=== PATIENT | female | born 2000 | race Caucasian/White ===

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

== ENCOUNTER → 2019-01-26 | Day surgery (SDC) | payer BC ==
[2019-01-23 10:36] LABS: Urine WBC None Seen /hpf (0 - 5)
[2019-01-23 10:45] LABS: Basophils # (auto) 0.1 uL; Eosinophils # (auto) 0.1 uL; Eosinophils % (auto) 1.8 % (0.0-7.0); Hematocrit 42.1 % (36.0-46.0); Hemoglobin 14.3 g/dL (12.2-16.2); Lymphocytes # (auto) 1.8 uL; Lymphocytes % (auto) 25.3 % (10.0-50.0); Mean Corpuscular Hemoglobin 31.8 pg (28.0-32.0); Mean Corpuscular Hgb Conc. 33.8 g/dL (32.0-36.0); Mean Corpuscular Volume 93.9 fL (80.0-100.0); Monocytes # (auto) 0.3 uL; Neutrophils # (auto) 4.8 uL; Neutrophils % (auto) 67.9 % (37.0-80.0); Platelet Count (auto) 312 10^3/uL (140-450); Red Blood Cells 4.48 10^6/uL (4.0-5.20); Red Cell Distribution Width 12.9 % (11.8-14.3); White Blood Cell 7.1 10^3/uL (4.4-10.8)
[2019-01-23 11:03] LABS: INR 0.97 (0.9-1.15); Partial Thromboplastin Time 28.9 sec (23.64-32.05)
[2019-01-23 11:08] LABS: Urine Bacteria FEW /hpf (None Seen); Urine Blood Negative /uL (Negative); Urine Specific Gravity 1.006 (1.001-1.035)
[2019-01-23 13:29] LABS: Albumin 4.3 g/dL (3.4-5.0); BUN/Creatinine Ratio 7.3; Bilirubin, Total 0.3 mg/dL (0.2-1.0); Calcium 9.3 mg/dL (8.5-10.1); Potassium 4.3 mmol/L (3.5-5.1); Total Protein 8.3 g/dL (6.4-8.2)
[~2019-01-26] VITALS: Ht 160 cm; Wt 54.4 kg
[~2019-01-26] MED LIST: BACL10TA PO; DexAMETHasone SOD PHOS 10MG/1ML VIAL INJ ONE; GLYCOPYRROLATE 0.2 MG/ML 1ML VIAL IV ONE; HYDROmorphone HCL 2 MG/ML VL IV PRN; KETOROLAC TROMETH 15 mg/ml 1ML VL IV ONE; KETOROLAC TROMETH 30 MG/ML 1ML VIAL IV ONE; LABETALOL HCL 5 MG/ML 4ML SYRINGE IV PRN; LACTATED RINGER'S 1,000 ML IV SCH; MEPERIDINE HCL (25 MG/ML) 1ML VIAL ONE; MIDAZOLAM HCL 1MG/1ML-2 ML VIAL IV PRN; MIDAZOLAM HCL 1MG/1ML-2 ML VIAL ONE; MORPHINE SULFATE 4 MG/ML SYR/VIAL IV ONE; NEOSTIGMINE 1 MG/ML INJ (10mg/10ML VIAL) IV ONE; ONDANSETRON HCL 4 MG/2 ML VIAL IV ONE; ONDANSETRON HCL 4 MG/2 ML VIAL IV PRN; PROPOFOL 10 MG/ML 20 ML IV ONE; ROCURONIUM 10MG/ML 10ML VIAL IV ONE; [UNRECOGNIZED DRUG - CODE] OR; ceFAZolin 1GM/50ML 50 ML IV ONE; ePHEDrine SULFATE 50 MG/ML AMP IV PRN; fentaNYL CITRATE 100 MCG/2 ML VL ONE
[2019-01-26 14:29] VITALS: BP 119/68
== END | disposition home or self-care (01) ==
LOC: SUR 09:49
PROVIDERS: ATTEND Specialist
DX: K66.0 Peritoneal adhesions (postprocedural) (postinfection) (principal); N94.6 Dysmenorrhea, unspecified; Z98.890 Other specified postprocedural states; Z88.8 Allergy status to other drugs, medicaments and biological substances; Z79.899 Other long term (current) drug therapy; Z88.5 Allergy status to narcotic agent
CPT/HCPCS: 36415; 58660; 80053; 81001; 84702; 85025; 85610; 85730; 86850; 86900; 86901; J0690; J1100; J1885; J2175; J2250; J2704; J3010

== ENCOUNTER 2019-03-20 21:01 | Emergency (ER) | payer SELFPAY ==
[~2019-03-20] VITALS: Ht 160 cm; Wt 54.4 kg
[~2019-03-20 21:01] MED LIST changes: -DexAMETHasone SOD PHOS 10MG/1ML VIAL INJ ONE; -GLYCOPYRROLATE 0.2 MG/ML 1ML VIAL IV ONE; -HYDROmorphone HCL 2 MG/ML VL IV PRN; -KETOROLAC TROMETH 15 mg/ml 1ML VL IV ONE; -KETOROLAC TROMETH 30 MG/ML 1ML VIAL IV ONE; -LABETALOL HCL 5 MG/ML 4ML SYRINGE IV PRN; -LACTATED RINGER'S 1,000 ML IV SCH; -MEPERIDINE HCL (25 MG/ML) 1ML VIAL ONE; -MIDAZOLAM HCL 1MG/1ML-2 ML VIAL IV PRN; -MIDAZOLAM HCL 1MG/1ML-2 ML VIAL ONE; -MORPHINE SULFATE 4 MG/ML SYR/VIAL IV ONE; -NEOSTIGMINE 1 MG/ML INJ (10mg/10ML VIAL) IV ONE; -ONDANSETRON HCL 4 MG/2 ML VIAL IV ONE; -ONDANSETRON HCL 4 MG/2 ML VIAL IV PRN; -PROPOFOL 10 MG/ML 20 ML IV ONE; -ROCURONIUM 10MG/ML 10ML VIAL IV ONE; -ceFAZolin 1GM/50ML 50 ML IV ONE; -ePHEDrine SULFATE 50 MG/ML AMP IV PRN; -fentaNYL CITRATE 100 MCG/2 ML VL ONE
[2019-03-21 00:22] VITALS: BP 95/51
[2019-03-21] MEDS ORDERED: METOCLOPRAMIDE HCL 5MG/ml INJ 2ml VIAL IV ONE (00:30)
[2019-03-21] MEDS ORDERED: KETOROLAC TROMETH 30 MG/ML 1ML VIAL IV ONE (00:30)
[2019-03-21] MEDS ORDERED: diphenhdrAMINE HCL 50 MG/1 ML VL IV ONE (00:30)
[2019-03-21] MEDS ORDERED: SODIUM CHLORIDE 0.9% 1,000 ML IV ONE (00:30)
[2019-03-21] MEDS ORDERED: diphenhdrAMINE HCL 50 MG/1 ML VL ONE (00:59)
== END 2019-03-21 01:55 | disposition home or self-care (01) ==
LOC: ER 21:02
DX: G43.909 Migraine, unspecified, not intractable, without status migrainosus (principal); R42 Dizziness and giddiness; Z90.89 Acquired absence of other organs
CPT/HCPCS: 96361; 96374; 96375; 99283; J1200; J1885; J2765; J7030

== ENCOUNTER 2019-07-23 08:05 | Emergency (ER) | payer BC ==
[~2019-07-23] VITALS: Ht 160 cm; Wt 55.3 kg
[2019-07-23 08:20] VITALS: BP 115/67
[2019-07-23] MEDS ORDERED: KETOROLAC TROMETH 60MG/2ML VIAL IM ONE (09:15)
[2019-07-23] MEDS ORDERED: KETOROLAC TROMETH 30 MG/ML 1ML VIAL IV ONE (09:30)
== END 2019-07-23 09:40 | disposition home or self-care (01) ==
LOC: ER 08:05
DX: S86.912A Strain of unspecified muscle(s) and tendon(s) at lower leg level, left leg, initial encounter (principal); R68.84 Jaw pain; Z90.89 Acquired absence of other organs; Z88.6 Allergy status to analgesic agent; Z88.8 Allergy status to other drugs, medicaments and biological substances; V27.4XXA Motorcycle driver injured in collision with fixed or stationary object in traffic accident, initial encounter; Y93.89 Activity, other specified; Y99.8 Other external cause status; Y92.410 Unspecified street and highway as the place of occurrence of the external cause
CPT/HCPCS: 70450; 73590; 73630; 73700; 74176; 96374; 99284; J1885

== ENCOUNTER 2019-09-05 16:18 | Emergency (ER) | payer BC ==
[~2019-09-05] VITALS: Ht 160 cm; Wt 57.2 kg
[2019-09-05 16:23] VITALS: BP 129/74
== END 2019-09-05 18:12 | disposition home or self-care (01) ==
LOC: ER 16:18
DX: S93.601A Unspecified sprain of right foot, initial encounter (principal); Z90.89 Acquired absence of other organs; Z88.8 Allergy status to other drugs, medicaments and biological substances; X50.1XXA Overexertion from prolonged static or awkward postures, initial encounter; Y93.89 Activity, other specified; Y99.8 Other external cause status; Y92.89 Other specified places as the place of occurrence of the external cause
CPT/HCPCS: 73630

== ENCOUNTER 2019-11-03 11:11 | Emergency (ER) | payer BC ==
[~2019-11-03] VITALS: Ht 160 cm; Wt 54.4 kg
[2019-11-03 11:25] VITALS: BP 154/76
== END 2019-11-03 13:25 | disposition home or self-care (01) ==
LOC: ER 11:11
DX: S40.011D Contusion of right shoulder, subsequent encounter (principal); Z88.6 Allergy status to analgesic agent; Z79.899 Other long term (current) drug therapy; V49.9XXA Car occupant (driver) (passenger) injured in unspecified traffic accident, initial encounter; Y93.89 Activity, other specified; Y92.89 Other specified places as the place of occurrence of the external cause; Y99.8 Other external cause status
CPT/HCPCS: 71101; 73000

== ENCOUNTER → 2020-01-14 | Outpatient (CLI) | payer BC, OTHER | END | disposition home or self-care (01) | LOC: LAB 09:34 | PROVIDERS: ATTEND Specialist | DX: Z11.3 Encounter for screening for infections with a predominantly sexual mode of transmission (principal) ==

== ENCOUNTER 2020-02-06 16:42 | Emergency (ER) | payer BC, OTHER ==
[~2020-02-06] VITALS: Ht 160 cm; Wt 54.4 kg
[2020-02-06 17:10] VITALS: BP 100/67
[2020-02-06] MEDS ORDERED: ONDANSETRON HCL 4 MG/2 ML VIAL IV ONE (17:30)
[2020-02-06 18:09] LABS: Basophils # (auto) 0 10 ^3/uL (0-0.2); Basophils % (auto) 0.3 % (0.0-2.0); Eosinophils # (auto) 0.8 10 ^3/uL (0-0.8); Eosinophils % (auto) 6.4 % (0.0-7.0); Hematocrit 41.8 % (36.0-46.0); Hemoglobin 14.2 g/dL (12.2-16.2); Lymphocytes # (auto) 1.1 10 ^3/uL (0.4-5.4); Lymphocytes % (auto) 9.1 % (10.0-50.0); Mean Corpuscular Hemoglobin 32.1 pg (28.0-32.0); Mean Corpuscular Volume 94.3 fL (80.0-100.0); Monocytes # (auto) 0.3 10 ^3/uL (0-1.3); Monocytes % (auto) 2.6 % (0.0-12.0); Neutrophils # (auto) 10.2 10 ^3/uL (1.6-8.6); Neutrophils % (auto) 81.6 % (37.0-80.0); Nucleated Red Blood Cells % 0.1 %; Platelet Count (auto) 244 10^3/uL (140-450); Red Blood Cells 4.44 10^6/uL (4.0-5.20); Red Cell Distribution Width 13.5 % (11.8-14.3); White Blood Cell 12.5 10^3/uL (4.4-10.8)
[2020-02-06] MEDS ORDERED: SODIUM CHLORIDE 0.9% 1,000 ML IV ONE (18:15)
[2020-02-06 18:24] LABS: Potassium 3.6 mmol/L (3.5-5.1)
[2020-02-06 19:26] LABS: BUN/Creatinine Ratio 10.3
== END 2020-02-06 18:47 | disposition home or self-care (01) ==
LOC: ER 16:42
DX: U07.1 COVID-19 (principal); B34.9 Viral infection, unspecified
CPT/HCPCS: 36415; 71045; 80048; 85025; 96361; 96374; 99284; J2405; U0003

== ENCOUNTER 2020-03-02 09:44 | Emergency (ER) | payer BC ==
[~2020-03-02] VITALS: Ht 160 cm; Wt 54.4 kg
[2020-03-02 10:57] VITALS: BP 106/65
== END 2020-03-02 11:07 | disposition home or self-care (01) ==
LOC: ER 09:44
DX: S00.33XA Contusion of nose, initial encounter (principal); R09.81 Nasal congestion; Z79.899 Other long term (current) drug therapy; Z88.6 Allergy status to analgesic agent; X58.XXXA Exposure to other specified factors, initial encounter; Y93.89 Activity, other specified; Y92.89 Other specified places as the place of occurrence of the external cause; Y99.8 Other external cause status
CPT/HCPCS: 70160

== ENCOUNTER → 2020-04-25 | Outpatient (CLI) | payer OTHER | END | disposition home or self-care (01) | LOC: LAB 10:44 | PROVIDERS: ATTEND Nurse Practitioner Family | DX: Z20.828 Contact with and (suspected) exposure to other viral communicable diseases (principal) | CPT/HCPCS: C9803; U0003 ==

== ENCOUNTER → 2020-06-20 | Outpatient (CLI) | payer BC | END | disposition home or self-care (01) | LOC: LAB 10:02 | PROVIDERS: ATTEND Internal Medicine | DX: R11.0 Nausea (principal) | CPT/HCPCS: 36415; 84702 ==

== ENCOUNTER 2020-08-23 13:06 | Emergency (ER) | payer BC ==
[~2020-08-23] VITALS: Ht 157.5 cm; Wt 58.1 kg
[2020-08-23 13:08] VITALS: BP 122/78
[2020-08-23] MEDS ORDERED: ONDANSETRON HCL 4 MG/2 ML VIAL IV ONE (13:45)
[2020-08-23] MEDS ORDERED: KETOROLAC TROMETH 30 MG/ML 1ML VIAL IV ONE (13:45)
[2020-08-23] MEDS ORDERED: SODIUM CHLORIDE 0.9% 1,000 ML IV ONE (13:45)
[2020-08-23 14:19] LABS: Basophils # (auto) 0 10 ^3/uL (0-0.2); Basophils % (auto) 0.8 % (0.0-2.0); Eosinophils # (auto) 0.4 10 ^3/uL (0-0.8); Eosinophils % (auto) 7.4 % (0.0-7.0); Hematocrit 39.7 % (36.0-46.0); Hemoglobin 13.4 g/dL (12.2-16.2); Lymphocytes # (auto) 1.1 10 ^3/uL (0.4-5.4); Lymphocytes % (auto) 21.2 % (10.0-50.0); Mean Corpuscular Hemoglobin 32.1 pg (28.0-32.0); Mean Corpuscular Hgb Conc. 33.9 g/dL (32.0-36.0); Mean Corpuscular Volume 94.9 fL (80.0-100.0); Monocytes # (auto) 0.4 10 ^3/uL (0-1.3); Monocytes % (auto) 6.8 % (0.0-12.0); Neutrophils # (auto) 3.4 10 ^3/uL (1.6-8.6); Neutrophils % (auto) 63.8 % (37.0-80.0); Platelet Count (auto) 270 10^3/uL (140-450); Red Blood Cells 4.19 10^6/uL (4.0-5.20); Red Cell Distribution Width 13.2 % (11.8-14.3); White Blood Cell 5.4 10^3/uL (4.4-10.8)
[2020-08-23 14:23] LABS: Urine Bacteria MANY /hpf (None Seen); Urine Blood Negative /uL (Negative); Urine Mucus FEW (None Seen); Urine Specific Gravity 1.036 (1.001-1.035); Urine WBC 4 /hpf (0 - 5)
[2020-08-23 14:34] LABS: BUN/Creatinine Ratio 7.7; Potassium 3.6 mmol/L (3.5-5.1)
[2020-08-23] MEDS ORDERED: cefTRIAXone 1GM/50ML D5W 50 ML IV ONE (15:00)
== END 2020-08-23 15:33 | disposition home or self-care (01) ==
LOC: ER 13:06
DX: N39.0 Urinary tract infection, site not specified (principal); Z88.8 Allergy status to other drugs, medicaments and biological substances
CPT/HCPCS: 36415; 80048; 81001; 81025; 85025; 96361; 96365; 96375; 99284; J0696; J1885; J2405

== ENCOUNTER 2020-10-05 21:33 | Emergency (ER) | payer BC ==
[~2020-10-05] VITALS: Ht 157.5 cm; Wt 57.2 kg
[2020-10-05 23:15] VITALS: BP 99/51
== END 2020-10-05 23:21 | disposition home or self-care (01) ==
LOC: ER 21:34
DX: R07.89 Other chest pain (principal); Z88.8 Allergy status to other drugs, medicaments and biological substances
CPT/HCPCS: 71046

== ENCOUNTER → 2020-10-10 | Outpatient (CLI) | payer BC ==
[2020-10-10 10:42] LABS: Basophils # (auto) 0.1 10 ^3/uL (0-0.2); Basophils % (auto) 1.1 % (0.0-2.0); Eosinophils # (auto) 0.2 10 ^3/uL (0-0.8); Eosinophils % (auto) 4.8 % (0.0-7.0); Hematocrit 37.9 % (36.0-46.0); Hemoglobin 13.2 g/dL (12.2-16.2); Lymphocytes # (auto) 1.4 10 ^3/uL (0.4-5.4); Lymphocytes % (auto) 26.6 % (10.0-50.0); Mean Corpuscular Hemoglobin 32.1 pg (28.0-32.0); Mean Corpuscular Hgb Conc. 34.8 g/dL (32.0-36.0); Mean Corpuscular Volume 92.2 fL (80.0-100.0); Monocytes # (auto) 0.3 10 ^3/uL (0-1.3); Neutrophils # (auto) 3.2 10 ^3/uL (1.6-8.6); Neutrophils % (auto) 62.5 % (37.0-80.0); Nucleated Red Blood Cells % 0.1 %; Platelet Count (auto) 260 10^3/uL (140-450); Red Blood Cells 4.11 10^6/uL (4.0-5.20); White Blood Cell 5.1 10^3/uL (4.4-10.8)
[2020-10-10 10:53] LABS: Calcium 9.2 mg/dL (8.5-10.1)
[2020-10-10 10:56] LABS: Bilirubin, Total 0.4 mg/dL (0.2-1.0); Total Protein 6.8 g/dL (6.4-8.2)
[2020-10-10 11:01] LABS: Urine Bacteria FEW /hpf (None Seen); Urine Blood Negative /uL (Negative); Urine Mucus FEW (None Seen); Urine Specific Gravity 1.029 (1.001-1.035); Urine WBC 3 /hpf (0 - 5)
[2020-10-11 08:06] LABS: RPR Non Reactive (Non Reactive)
== END | disposition home or self-care (01) ==
LOC: LAB 09:17
PROVIDERS: ATTEND Internal Medicine
DX: Z00.00 Encounter for general adult medical examination without abnormal findings (principal); F31.9 Bipolar disorder, unspecified
CPT/HCPCS: 36415; 80053; 81001; 83036; 84443; 85025; 85379; 86592; 87086

== ENCOUNTER 2021-02-01 00:11 | Emergency (ER) | payer BC ==
[~2021-02-01] VITALS: Ht 157.5 cm; Wt 56.2 kg
[2021-02-01 02:05] LABS: Basophils # (auto) 0.1 10 ^3/uL (0-0.2); Basophils % (auto) 1.3 % (0.0-2.0); Eosinophils # (auto) 0.3 10 ^3/uL (0-0.8); Eosinophils % (auto) 4.5 % (0.0-7.0); Hematocrit 39.3 % (36.0-46.0); Hemoglobin 13.7 g/dL (12.2-16.2); Lymphocytes # (auto) 2.4 10 ^3/uL (0.4-5.4); Lymphocytes % (auto) 34.8 % (10.0-50.0); Mean Corpuscular Hemoglobin 31.7 pg (28.0-32.0); Mean Corpuscular Hgb Conc. 34.9 g/dL (32.0-36.0); Monocytes # (auto) 0.3 10 ^3/uL (0-1.3); Monocytes % (auto) 4.3 % (0.0-12.0); Neutrophils # (auto) 3.8 10 ^3/uL (1.6-8.6); Neutrophils % (auto) 55.1 % (37.0-80.0); Nucleated Red Blood Cells % 0.1 %; Red Blood Cells 4.31 10^6/uL (4.0-5.20); Red Cell Distribution Width 12.8 % (11.8-14.3); White Blood Cell 6.8 10^3/uL (4.4-10.8)
[2021-02-01 02:37] LABS: Albumin 4.2 g/dL (3.4-5.0); BUN/Creatinine Ratio 13.6; Calcium 8.4 mg/dL (8.5-10.1); Potassium 3.9 mmol/L (3.5-5.1)
[2021-02-01 02:40] LABS: Bilirubin, Total 0.2 mg/dL (0.2-1.0); Total Protein 7.2 g/dL (6.4-8.2)
[2021-02-01] MEDS ORDERED: ONDANSETRON HCL 4 MG/2 ML VIAL IV ONE (04:45)
[2021-02-01] MEDS ORDERED: SODIUM CHLORIDE 0.9% 1,000 ML IV ONE (04:45)
[2021-02-01] MEDS ORDERED: MORPHINE SULF INJ 2 MG/ML SYRINGE 1ML IV ONE (04:45)
[2021-02-01 04:47] LABS: Urine Bacteria FEW /hpf (None Seen); Urine Blood Negative /uL (Negative); Urine Specific Gravity 1.021 (1.001-1.035); Urine WBC 1 /hpf (0 - 5)
[2021-02-01] MEDS ORDERED: ACETAMINOPHEN 325 MG TAB PO ONE (05:00)
[2021-02-01] MEDS ORDERED: cefTRIAXone 1GM/50ML D5W 50 ML IV ONE (05:00)
[2021-02-01 06:11] VITALS: BP 106/69
== END 2021-02-01 06:18 | disposition home or self-care (01) ==
LOC: ER 00:13
DX: R10.2 Pelvic and perineal pain (principal); R11.0 Nausea; Z88.6 Allergy status to analgesic agent; Z88.8 Allergy status to other drugs, medicaments and biological substances; Z79.899 Other long term (current) drug therapy; Z87.440 Personal history of urinary (tract) infections
CPT/HCPCS: 36415; 76830; 76856; 80053; 81001; 84702; 85025; 87086; 96365; 96375; 99284; J0696; J2270; J2405

== ENCOUNTER → 2021-05-26 | Outpatient (CLI) | payer BC ==
[2021-05-26 10:55] LABS: Basophils # (auto) 0 10 ^3/uL (0-0.2); Basophils % (auto) 0.7 % (0.0-2.0); Eosinophils # (auto) 0.2 10 ^3/uL (0-0.8); Hematocrit 40.8 % (36.0-46.0); Hemoglobin 13.9 g/dL (12.2-16.2); Lymphocytes # (auto) 1.5 10 ^3/uL (0.4-5.4); Lymphocytes % (auto) 25.1 % (10.0-50.0); Mean Corpuscular Hemoglobin 31.4 pg (28.0-32.0); Mean Corpuscular Hgb Conc. 34.1 g/dL (32.0-36.0); Mean Corpuscular Volume 92.2 fL (80.0-100.0); Monocytes # (auto) 0.4 10 ^3/uL (0-1.3); Monocytes % (auto) 6.1 % (0.0-12.0); Neutrophils # (auto) 3.8 10 ^3/uL (1.6-8.6); Neutrophils % (auto) 65.1 % (37.0-80.0); Nucleated Red Blood Cells % 0.1 %; Red Blood Cells 4.43 10^6/uL (4.0-5.20); Red Cell Distribution Width 12.7 % (11.8-14.3); White Blood Cell 5.8 10^3/uL (4.4-10.8)
[2021-05-26 11:33] LABS: Urine Bacteria MOD /hpf (None Seen); Urine Blood Negative /uL (Negative); Urine Hyaline Cast FEW /lpf (0 - 2); Urine Specific Gravity 1.021 (1.001-1.035); Urine WBC 5 /hpf (0 - 5)
== END | disposition home or self-care (01) ==
LOC: LAB 10:40
PROVIDERS: ATTEND Internal Medicine
DX: N39.0 Urinary tract infection, site not specified (principal); F31.9 Bipolar disorder, unspecified
CPT/HCPCS: 36415; 81001; 84443; 85025; 85652

== ENCOUNTER 2021-06-24 14:24 | Emergency (ER) | payer BC ==
[~2021-06-24] VITALS: Ht 160 cm; Wt 59.0 kg
[2021-06-24 15:41] VITALS: BP 115/78
[2021-06-24] MEDS ORDERED: KETOROLAC TROMETH 60MG/2ML VIAL IM ONE (16:00)
[2021-06-24] MEDS ORDERED: methylPREDNISolone SOD SUCC 125 MG/2 ML VL IM ONE (16:00)
== END 2021-06-24 16:27 | disposition home or self-care (01) ==
LOC: ER 14:24
DX: S39.012A Strain of muscle, fascia and tendon of lower back, initial encounter (principal); X50.1XXA Overexertion from prolonged static or awkward postures, initial encounter; Y93.89 Activity, other specified; Y92.89 Other specified places as the place of occurrence of the external cause; Y99.8 Other external cause status
CPT/HCPCS: 96372; 99284; J1885; J2930

== ENCOUNTER 2021-07-08 10:52 | Emergency (ER) | payer BC ==
[~2021-07-08] VITALS: Ht 160 cm; Wt 59.0 kg
[2021-07-08 12:52] VITALS: BP 124/68
[2021-07-08] MEDS ORDERED: BENZ100C97 PO (14:17)
[2021-07-08] MEDS ORDERED: PRED20TA2 PO (14:17)
[2021-07-08] MEDS ORDERED: AMOX-277 PO (14:17)
== END 2021-07-08 14:21 | disposition home or self-care (01) ==
LOC: ER 10:52 → EEVIPCON 10:52 → ER 14:21
DX: J06.9 Acute upper respiratory infection, unspecified (principal); F12.10 Cannabis abuse, uncomplicated; Z90.89 Acquired absence of other organs; Z20.822 Contact with and (suspected) exposure to COVID-19
CPT/HCPCS: 36415; 71046; 87426

== ENCOUNTER → 2021-11-09 | Outpatient (CLI) | payer BC ==
[~2021-11-09] MED LIST changes: +AMOX-277 PO; +BENZ100C97 PO; +PRED20TA2 PO
[2021-11-09 15:00] LABS: Basophils # (auto) 0.2 10 ^3/uL (0-0.2); Basophils % (auto) 1.4 % (0.0-2.0); Eosinophils # (auto) 0.1 10 ^3/uL (0-0.8); Eosinophils % (auto) 0.9 % (0.0-7.0); Hematocrit 38.7 % (36.0-46.0); Hemoglobin 13.2 g/dL (12.2-16.2); Lymphocytes # (auto) 1.5 10 ^3/uL (0.4-5.4); Lymphocytes % (auto) 13.1 % (10.0-50.0); Mean Corpuscular Hgb Conc. 34.2 g/dL (32.0-36.0); Mean Corpuscular Volume 90.5 fL (80.0-100.0); Monocytes # (auto) 0.3 10 ^3/uL (0-1.3); Neutrophils # (auto) 9.2 10 ^3/uL (1.6-8.6); Neutrophils % (auto) 81.6 % (37.0-80.0); Red Blood Cells 4.27 10^6/uL (4.0-5.20); Red Cell Distribution Width 13.2 % (11.8-14.3); White Blood Cell 11.2 10^3/uL (4.4-10.8)
[2021-11-09 15:34] LABS: Amphetamine Screen, Urine NEGATIVE (NEGATIVE); Barbiturate Scree,Urine NEGATIVE (NEGATIVE); Benzodiazephine Screen, Urine NEGATIVE (NEGATIVE); Cannabinoid Screen, Urine NEGATIVE (NEGATIVE); Cocaine Screen, Urine NEGATIVE (NEGATIVE); Opiate Scree,Urine NEGATIVE (NEGATIVE); Phencyclidine Screen, Urine NEGATIVE (NEGATIVE)
[2021-11-10 08:06] LABS: RPR Non Reactive (Non Reactive)
== END | disposition home or self-care (01) ==
LOC: LAB 14:31
PROVIDERS: ATTEND Obstetrics & Gynecology Obstetrics
DX: Z34.00 Encounter for supervision of normal first pregnancy, unspecified trimester (principal); Z31.430 Encounter of female for testing for genetic disease carrier status for procreative management; Z11.3 Encounter for screening for infections with a predominantly sexual mode of transmission; N39.0 Urinary tract infection, site not specified
CPT/HCPCS: 36415; 80307; 83036; 84112; 84144; 84702; 85025; 86592; 86703; 86762; 86850; 86900; 86901; 87086; 87340

== ENCOUNTER 2021-12-10 09:02 | Emergency (ER) | payer BC ==
[~2021-12-10] VITALS: Ht 157.5 cm; Wt 61.7 kg
[2021-12-10 09:29] LABS: Urine WBC None Seen /hpf (0 - 5)
[2021-12-10 09:43] LABS: Urine Bacteria NONE SEEN /hpf (None Seen); Urine Blood Negative /uL (Negative)
[2021-12-10 10:04] LABS: Basophils # (auto) 0.1 10 ^3/uL (0-0.2); Basophils % (auto) 1.7 % (0.0-2.0); Eosinophils # (auto) 0.1 10 ^3/uL (0-0.8); Eosinophils % (auto) 0.9 % (0.0-7.0); Hematocrit 35.8 % (36.0-46.0); Hemoglobin 12.8 g/dL (12.2-16.2); Lymphocytes # (auto) 0.9 10 ^3/uL (0.4-5.4); Lymphocytes % (auto) 11.9 % (10.0-50.0); Mean Corpuscular Hemoglobin 32.6 pg (28.0-32.0); Mean Corpuscular Hgb Conc. 35.8 g/dL (32.0-36.0); Mean Corpuscular Volume 90.9 fL (80.0-100.0); Monocytes # (auto) 0.3 10 ^3/uL (0-1.3); Neutrophils # (auto) 6.4 10 ^3/uL (1.6-8.6); Neutrophils % (auto) 81.5 % (37.0-80.0); Nucleated Red Blood Cells % 0.1 %; Red Blood Cells 3.94 10^6/uL (4.0-5.20); Red Cell Distribution Width 13.2 % (11.8-14.3); White Blood Cell 7.9 10^3/uL (4.4-10.8)
[2021-12-10 10:12] LABS: Albumin 3.2 g/dL (3.4-5.0); Calcium 8.6 mg/dL (8.5-10.1); Potassium 3.9 mmol/L (3.5-5.1)
[2021-12-10 10:16] LABS: BUN/Creatinine Ratio 9.3; Bilirubin, Total 0.3 mg/dL (0.2-1.0); Total Protein 6.7 g/dL (6.4-8.2)
[2021-12-10 11:41] VITALS: BP 94/55
== END 2021-12-10 11:47 | disposition home or self-care (01) ==
LOC: ER 09:02
DX: O26.892 Other specified pregnancy related conditions, second trimester (principal); M54.9 Dorsalgia, unspecified; O25.12 Malnutrition in pregnancy, second trimester; Z3A.15 15 weeks gestation of pregnancy; Z90.89 Acquired absence of other organs; Z88.6 Allergy status to analgesic agent; Z88.8 Allergy status to other drugs, medicaments and biological substances
CPT/HCPCS: 36415; 76805; 80053; 81001; 83690; 84702; 85025

== ENCOUNTER 2021-12-16 07:51 | Emergency (ER) | payer BC ==
[~2021-12-16] VITALS: Ht 157.5 cm; Wt 62.6 kg
[2021-12-16 07:57] VITALS: BP 108/75
[2021-12-16] MEDS ORDERED: ACETAMINOPHEN 500 MG TAB PO ONE (08:45)
[2021-12-16] MEDS ORDERED: METOCLOPRAMIDE HCL 10 MG TAB PO ONE (08:45)
[2021-12-16] MEDS ORDERED: diphenhdrAMINE HCL 50 MG/1 ML VL IM ONE (09:00)
[2021-12-16 09:03] LABS: Urine Bacteria MOD /hpf (None Seen); Urine Blood Negative /uL (Negative); Urine Specific Gravity 1.016 (1.001-1.035); Urine WBC 2 /hpf (0 - 5)
[2021-12-16] MEDS ORDERED: ACET-1080 PO (09:13)
[2021-12-16] MEDS ORDERED: ACE650RS PR (09:13)
== END 2021-12-16 09:17 | disposition home or self-care (01) ==
LOC: ER 07:51
DX: O29.42 Spinal and epidural anesthesia induced headache during pregnancy, second trimester (principal); G43.909 Migraine, unspecified, not intractable, without status migrainosus; O99.322 Drug use complicating pregnancy, second trimester; F12.90 Cannabis use, unspecified, uncomplicated; Z90.89 Acquired absence of other organs; Z3A.16 16 weeks gestation of pregnancy
CPT/HCPCS: 81001; 81025; 96372; 99283; J1200; J8597

== ENCOUNTER 2022-01-21 08:15 | Observation (INO) | payer BC ==
[~2022-01-21 08:15] MED LIST changes: +ACET-1080 PO
== END 2022-01-21 10:12 | disposition home or self-care (01) ==
LOC: LDRP 08:15 → UNDOADMOB 08:15 → LDRP 08:30
PROVIDERS: ADMIT Obstetrics & Gynecology; ATTEND Obstetrics & Gynecology
DX: O26.892 Other specified pregnancy related conditions, second trimester (principal); R10.9 Unspecified abdominal pain; O62.9 Abnormality of forces of labor, unspecified; Z3A.20 20 weeks gestation of pregnancy
CPT/HCPCS: 59025; 81002; G0378

== ENCOUNTER → 2022-02-12 | Outpatient (CLI) | payer BC ==
[~2022-02-12] MED LIST changes: -BACL10TA PO; -[UNRECOGNIZED DRUG - CODE] OR
[2022-02-12 08:09] LABS: Basophils # (auto) 0 10 ^3/uL (0-0.2); Basophils % (auto) 0.4 % (0.0-2.0); Eosinophils # (auto) 0.1 10 ^3/uL (0-0.8); Eosinophils % (auto) 1.4 % (0.0-7.0); Hematocrit 36.9 % (36.0-46.0); Hemoglobin 12.4 g/dL (12.2-16.2); Lymphocytes # (auto) 1.3 10 ^3/uL (0.4-5.4); Lymphocytes % (auto) 12.3 % (10.0-50.0); Mean Corpuscular Hemoglobin 31.3 pg (28.0-32.0); Mean Corpuscular Hgb Conc. 33.5 g/dL (32.0-36.0); Mean Corpuscular Volume 93.6 fL (80.0-100.0); Monocytes # (auto) 0.5 10 ^3/uL (0-1.3); Monocytes % (auto) 4.7 % (0.0-12.0); Neutrophils # (auto) 8.3 10 ^3/uL (1.6-8.6); Neutrophils % (auto) 81.2 % (37.0-80.0); Red Blood Cells 3.94 10^6/uL (4.0-5.20); Red Cell Distribution Width 13.4 % (11.8-14.3); White Blood Cell 10.2 10^3/uL (4.4-10.8)
== END | disposition home or self-care (01) ==
LOC: LAB 07:58
PROVIDERS: ATTEND Obstetrics & Gynecology Obstetrics
DX: Z34.80 Encounter for supervision of other normal pregnancy, unspecified trimester (principal)
CPT/HCPCS: 36415; 82951; 85025

== ENCOUNTER 2022-02-25 09:34 | Observation (INO) | payer BC ==
[2022-02-25] MEDS ORDERED: LACTATED RINGER'S 1,000 ML IV ONE (10:30)
[2022-02-25 12:41] LABS: Urine Bacteria FEW /hpf (None Seen); Urine Blood Negative /uL (Negative); Urine Mucus FEW (None Seen); Urine WBC 2 /hpf (0 - 5)
== END 2022-02-25 11:35 | disposition home or self-care (01) ==
LOC: UNDOADMOB 09:34 → LDRP 09:34
PROVIDERS: ADMIT Obstetrics & Gynecology; ATTEND Obstetrics & Gynecology
DX: O99.891 Other specified diseases and conditions complicating pregnancy (principal); M54.50 Low back pain, unspecified; O26.892 Other specified pregnancy related conditions, second trimester; R10.9 Unspecified abdominal pain; Z3A.25 25 weeks gestation of pregnancy
CPT/HCPCS: 59025; 81001; 81002; 87086; 94760; 96360; G0378

== ENCOUNTER 2022-04-06 21:36 | Observation (INO) | payer BC ==
[~2022-04-06] VITALS: Ht 157.5 cm; Wt 69.9 kg
[2022-04-06] MEDS ORDERED: LACTATED RINGER'S 1,000 ML IV ONE ×2 (22:30→23:15)
[2022-04-06] MEDS ORDERED: ONDANSETRON HCL 4 MG/2 ML VIAL IV ONE (22:30)
[2022-04-06] MEDS ORDERED: ACETAMINOPHEN 325 MG TAB PO ONE (22:30)
[2022-04-06] MEDS ORDERED: CALC500C3 PO (23:09)
[2022-04-06] MEDS ORDERED: PREN-96 PO (23:09)
[2022-04-06] MEDS ORDERED: [UNRECOGNIZED DRUG - CODE] IJ (23:11)
[2022-04-06] MEDS ORDERED: TERBUTALINE SULFATE 1 MG/ML 1ML VIAL SC ONE (23:23)
[2022-04-06] MEDS: TERBUTALINE SULFATE 1 MG/ML 1ML VIAL SC SCH ×2 (23:24→23:44)
[2022-04-07] MEDS: TERBUTALINE SULFATE 1 MG/ML 1ML VIAL SC SCH (00:24)
[2022-04-07] MEDS ORDERED: NIFEdipine 10 MG CAP PO ONE (01:15)
[2022-04-07] MEDS ORDERED: PREN-96 OR (19:00)
[2022-04-25] MEDS ORDERED: NIF10C PO ×2 (21:48)
== END 2022-04-07 02:09 | disposition home or self-care (01) ==
LOC: LDRP 21:36
PROVIDERS: ADMIT Obstetrics & Gynecology; ATTEND Obstetrics & Gynecology
DX: O60.03 Preterm labor without delivery, third trimester (principal); Z20.822 Contact with and (suspected) exposure to COVID-19; O21.2 Late vomiting of pregnancy; O26.893 Other specified pregnancy related conditions, third trimester; R19.7 Diarrhea, unspecified; Z3A.31 31 weeks gestation of pregnancy
CPT/HCPCS: 36415; 59025; 76815; 81002; 87426; 94760; 96361; 96372; 96374; G0378; J2405; J3105; 96360

== ENCOUNTER 2022-04-07 14:35 | Observation (INO) | payer BC ==
[~2022-04-07] VITALS: Ht 162.6 cm; Wt 72.6 kg
[~2022-04-07 14:35] MED LIST changes: +CALC500C3 PO; +PREN-96 PO; +[UNRECOGNIZED DRUG - CODE] IJ
[2022-04-07] MEDS ORDERED: NIFEdipine 10 MG CAP PO ONE (15:45)
[2022-04-07] MEDS ORDERED: ceFAZolin 2 GM in D5W 5% 100 ML IV ONE (16:45)
[2022-04-07] MEDS ORDERED: LACTATED RINGER'S 1,000 ML IV ONE (16:45)
[2022-04-07] MEDS ORDERED: BUTORPHANOL TARTRATE 2 MG/1 ML VIAL IV ONE (16:45)
[2022-04-07 18:30] LABS: Urine Bacteria MOD /hpf (None Seen); Urine Blood Negative /uL (Negative); Urine Specific Gravity 1.005 (1.001-1.035); Urine WBC 1 /hpf (0 - 5)
[2022-04-07] MEDS ORDERED: PREN-96 OR (19:00)
== END 2022-04-07 19:21 | disposition home or self-care (01) ==
LOC: UNDOADMOB 14:35 → LDRP 14:35
PROVIDERS: ADMIT Obstetrics & Gynecology; ATTEND Obstetrics & Gynecology
DX: O62.9 Abnormality of forces of labor, unspecified (principal); O26.893 Other specified pregnancy related conditions, third trimester; R10.9 Unspecified abdominal pain; Z3A.31 31 weeks gestation of pregnancy
CPT/HCPCS: 59025; 76775; 81001; 81002; 84112; 94760; 96361; 96365; G0378; J0690; J7060; J7120; Q0114; 96360

== ENCOUNTER 2022-04-11 18:47 | Observation (INO) | payer BC ==
[~2022-04-11] VITALS: Ht 157.5 cm; Wt 69.9 kg
[~2022-04-11 18:47] MED LIST changes: +PREN-96 OR
[2022-04-11] MEDS ORDERED: TERBUTALINE SULFATE 1 MG/ML 1ML VIAL SC PRN (19:30)
[2022-04-11] MEDS ORDERED: TERBUTALINE SULFATE 1 MG/ML 1ML VIAL SC ONE (19:35)
[2022-04-11] MEDS ORDERED: CEPH-322 PO (20:27)
== END 2022-04-11 21:20 | disposition home or self-care (01) ==
LOC: LDRP 18:47
PROVIDERS: ADMIT Obstetrics & Gynecology; ATTEND Obstetrics & Gynecology
DX: O26.893 Other specified pregnancy related conditions, third trimester (principal); R10.9 Unspecified abdominal pain; O62.9 Abnormality of forces of labor, unspecified; Z3A.32 32 weeks gestation of pregnancy
CPT/HCPCS: 59025; 81002; 94760; 96372; G0378; J3105

== ENCOUNTER 2022-04-14 13:32 | Observation (INO) | payer BC ==
[~2022-04-14] VITALS: Ht 157.5 cm; Wt 80.3 kg
[~2022-04-14 13:32] MED LIST changes: +CEPH-322 PO
[2022-04-14] MEDS ORDERED: LACTATED RINGER'S 1,000 ML IV ONE (14:30)
[2022-04-14] MEDS ORDERED: ONDANSETRON HCL 4 MG/2 ML VIAL IV ONE (15:35)
[2022-04-14] MEDS ORDERED: ACETAMINOPHEN 325 MG TAB PO ONE (15:35)
== END 2022-04-14 16:45 | disposition home or self-care (01) ==
LOC: LDRP 13:32 → UNDOADMOB 13:32 → LDRP 14:17
PROVIDERS: ADMIT Obstetrics & Gynecology; ATTEND Obstetrics & Gynecology
DX: O26.893 Other specified pregnancy related conditions, third trimester (principal); R51.9 Headache, unspecified; R10.9 Unspecified abdominal pain; H53.8 Other visual disturbances; O21.2 Late vomiting of pregnancy; O62.9 Abnormality of forces of labor, unspecified; Z3A.32 32 weeks gestation of pregnancy
CPT/HCPCS: 59025; 81002; 96361; 96374; G0378; J2405

== ENCOUNTER 2022-04-17 13:00 | Observation (INO) | payer BC ==
[~2022-04-17] VITALS: Ht 157.5 cm; Wt 73.5 kg
[2022-04-17] MEDS ORDERED: BETAMETHASONE ACET (30mg/5ml) 5ml Vial 6mg/ml IM ONE (13:30)
== END 2022-04-17 14:30 | disposition home or self-care (01) ==
LOC: LDRP 13:00
PROVIDERS: ADMIT Obstetrics & Gynecology Obstetrics; ATTEND Obstetrics & Gynecology Obstetrics
DX: O60.03 Preterm labor without delivery, third trimester (principal); O21.2 Late vomiting of pregnancy; Z3A.33 33 weeks gestation of pregnancy
CPT/HCPCS: 59025; 81002; 94760; 96372; G0378; J0702

== ENCOUNTER 2022-04-18 09:59 | Observation (INO) | payer BC ==
[~2022-04-18] VITALS: Ht 157.5 cm; Wt 73.5 kg
[2022-04-18] MEDS ORDERED: LACTATED RINGER'S 1,000 ML IV ONE (10:15)
[2022-04-18] MEDS ORDERED: BETAMETHASONE ACET (30mg/5ml) 5ml Vial 6mg/ml IM ONE (10:15)
[2022-04-18] MEDS ORDERED: TERBUTALINE SULFATE 1 MG/ML 1ML VIAL SC ONE (10:30)
[2022-04-18] MEDS ORDERED: NIFEdipine 10 MG CAP PO ONE (10:30)
== END 2022-04-18 13:10 | disposition home or self-care (01) ==
LOC: EEVIPCON 09:59 → LDRP 09:59
PROVIDERS: ADMIT Obstetrics & Gynecology; ATTEND Obstetrics & Gynecology
DX: O60.03 Preterm labor without delivery, third trimester (principal); O62.9 Abnormality of forces of labor, unspecified; Z3A.33 33 weeks gestation of pregnancy
CPT/HCPCS: 59025; 94760; 96360; 96361; 96372; G0378; J3105

== ENCOUNTER 2022-04-25 20:44 | Observation (INO) | payer BC ==
[~2022-04-25] VITALS: Ht 157.5 cm; Wt 73.5 kg
[2022-04-25] MEDS ORDERED: NIF10C PO (21:48)
== END 2022-04-25 22:01 | disposition home or self-care (01) ==
LOC: LDRP 20:44
PROVIDERS: ADMIT Obstetrics & Gynecology; ATTEND Obstetrics & Gynecology
DX: O62.9 Abnormality of forces of labor, unspecified (principal); Z3A.34 34 weeks gestation of pregnancy
CPT/HCPCS: 59025; 81002; 94760; G0378

== ENCOUNTER 2022-05-10 14:13 | Observation (INO) | payer BC ==
[~2022-05-10 14:13] MED LIST changes: +NIF10C PO
[2022-05-10 15:09] LABS: Basophils # (auto) 0 10 ^3/uL (0-0.2); Basophils % (auto) 0.1 % (0.0-2.0); Eosinophils # (auto) 0 10 ^3/uL (0-0.8); Eosinophils % (auto) 0.4 % (0.0-7.0); Hematocrit 35.2 % (36.0-46.0); Hemoglobin 11.8 g/dL (12.2-16.2); Lymphocytes # (auto) 1.1 10 ^3/uL (0.4-5.4); Lymphocytes % (auto) 10.8 % (10.0-50.0); Mean Corpuscular Hemoglobin 30.2 pg (28.0-32.0); Mean Corpuscular Hgb Conc. 33.6 g/dL (32.0-36.0); Mean Corpuscular Volume 89.7 fL (80.0-100.0); Monocytes # (auto) 0.4 10 ^3/uL (0-1.3); Monocytes % (auto) 4.3 % (0.0-12.0); Neutrophils # (auto) 8.4 10 ^3/uL (1.6-8.6); Neutrophils % (auto) 84.4 % (37.0-80.0); Red Blood Cells 3.92 10^6/uL (4.0-5.20); Red Cell Distribution Width 14.5 % (11.8-14.3); White Blood Cell 9.9 10^3/uL (4.4-10.8)
[2022-05-10 15:16] LABS: Urine Bacteria MANY /hpf (None Seen); Urine Blood Negative /uL (Negative); Urine Specific Gravity 1.004 (1.001-1.035); Urine WBC 2 /hpf (0 - 5)
== END 2022-05-10 15:56 | disposition home or self-care (01) ==
LOC: UNDOADMOB 14:13 → LDRP 14:13
PROVIDERS: ADMIT Obstetrics & Gynecology Obstetrics; ATTEND Obstetrics & Gynecology Obstetrics
DX: O36.8330 Maternal care for abnormalities of the fetal heart rate or rhythm, third trimester, not applicable or unspecified (principal); Z3A.36 36 weeks gestation of pregnancy; Z79.899 Other long term (current) drug therapy
CPT/HCPCS: 36415; 59025; 81001; 82948; 82962; 85025; G0378

== ENCOUNTER 2022-05-22 12:10 | Observation (INO) | payer BC ==
[~2022-05-22 12:10] MED LIST changes: -NIF10C PO
== END 2022-05-22 14:00 | disposition home or self-care (01) ==
LOC: LDRP 12:10
PROVIDERS: ADMIT Obstetrics & Gynecology; ATTEND Obstetrics & Gynecology
DX: O26.893 Other specified pregnancy related conditions, third trimester (principal); R30.0 Dysuria; R51.9 Headache, unspecified; R35.0 Frequency of micturition; O21.2 Late vomiting of pregnancy; O62.9 Abnormality of forces of labor, unspecified; Z3A.38 38 weeks gestation of pregnancy
CPT/HCPCS: 59025; 81002; 94760; G0378; Q0114

== ENCOUNTER 2022-05-24 02:17 | Inpatient (IN) | payer BC ==
[~2022-05-24] VITALS: Ht 157.5 cm; Wt 79.4 kg
[2022-05-24] MEDS ORDERED: BUTORPHANOL TARTRATE 2 MG/1 ML VIAL IV PRN ×2 (04:15)
[2022-05-24] MEDS ORDERED: WITCH HAZEL-GLYCERIN PAD TOP PRN (04:15)
[2022-05-24] MEDS ORDERED: DERMOPLAST 60ML BOTTLE TOP PRN (04:15)
[2022-05-24] MEDS ORDERED: LIDOCAINE 2%HCL (LOCAL ANESTH.) INJ 10ml MDV IJ PRN (04:15)
[2022-05-24] MEDS ORDERED: PROMETHAZINE HCL 25 MG/ML 1ML IV PRN (04:15)
[2022-05-24] MEDS ORDERED: PHISODERM TOP SOLN 240ML BTL TOP PRN (04:15)
[2022-05-24 04:52] LABS: Basophils # (auto) 0 10 ^3/uL (0-0.2); Basophils % (auto) 0.2 % (0.0-2.0); Eosinophils # (auto) 0.1 10 ^3/uL (0-0.8); Hematocrit 37.2 % (36.0-46.0); Hemoglobin 12.2 g/dL (12.2-16.2); Lymphocytes # (auto) 1.5 10 ^3/uL (0.4-5.4); Lymphocytes % (auto) 13.5 % (10.0-50.0); Mean Corpuscular Hemoglobin 29.6 pg (28.0-32.0); Mean Corpuscular Hgb Conc. 32.8 g/dL (32.0-36.0); Mean Corpuscular Volume 90.2 fL (80.0-100.0); Monocytes # (auto) 0.6 10 ^3/uL (0-1.3); Neutrophils # (auto) 9.2 10 ^3/uL (1.6-8.6); Neutrophils % (auto) 80.3 % (37.0-80.0); Nucleated Red Blood Cells % 0.1 %; Red Blood Cells 4.13 10^6/uL (4.0-5.20); Red Cell Distribution Width 15.1 % (11.8-14.3); White Blood Cell 11.4 10^3/uL (4.4-10.8)
[2022-05-24 05:11] LABS: INR 0.92 (0.9-1.15); Partial Thromboplastin Time 28.8 sec (24.6-33.4)
[2022-05-24 05:17] LABS: Alcohol, Urine < 3.0 mg/dL (0-10); Amphetamine Screen, Urine NEGATIVE (NEGATIVE); Barbiturate Scree,Urine NEGATIVE (NEGATIVE); Benzodiazephine Screen, Urine NEGATIVE (NEGATIVE); Cannabinoid Screen, Urine NEGATIVE (NEGATIVE); Cocaine Screen, Urine NEGATIVE (NEGATIVE); Opiate Scree,Urine NEGATIVE (NEGATIVE); Phencyclidine Screen, Urine NEGATIVE (NEGATIVE)
[2022-05-24 05:18] LABS: Albumin 2.6 g/dL (3.4-5.0); BUN/Creatinine Ratio 13.3; Bilirubin, Total 0.2 mg/dL (0.2-1.0); Calcium 8.7 mg/dL (8.5-10.1); Potassium 3.9 mmol/L (3.5-5.1); Total Protein 6.1 g/dL (6.4-8.2)
[2022-05-24] MEDS: LACTATED RINGER'S 1,000 ML IV SCH ×2 (05:24→09:04)
[2022-05-24 05:38] LABS: Urine Bacteria FEW /hpf (None Seen); Urine Blood 2+ /uL (Negative); Urine Specific Gravity 1.012 (1.001-1.035); Urine WBC 2 /hpf (0 - 5)
[2022-05-24] MEDS ORDERED: miSOPROStol 50 MCG per PRE-CUT 1/2 TAB PO PRN (06:30)
[2022-05-24] MEDS ORDERED: LACT. RINGERS/OXYTOCIN 20UNITS 500 ML IV ONE ×2 (09:00→09:30)
[2022-05-24] MEDS ORDERED: LIDOCAINE 1%-Mpf/Epinephrine 1:200,000 IJ ONE (09:30)
[2022-05-24] MEDS ORDERED: NALOXONE HCL 0.4 MG/ML VIAL IV ONE (09:30)
[2022-05-24] MEDS ORDERED: LIDOCAINE HCL 2 %PF INJ 10ML AMP IJ ONE (09:30)
[2022-05-24] MEDS ORDERED: ePHEDrine SULFATE 50 MG/ML AMP IV ONE (09:30)
[2022-05-24] MEDS ORDERED: fentaNYL CITRATE 100 MCG/2 ML VL IV ONE (09:30)
[2022-05-24] MEDS ORDERED: LIDOCAINE 2%HCL (LOCAL ANESTH.) INJ 10ml MDV IJ ONE (09:30)
[2022-05-24] MEDS ORDERED: ROPIVACAINE HCL 200 ML EPI SCH ×2 (09:30→11:30)
[2022-05-24] MEDS ORDERED: DOCUSATE SOD 100 MG CAP PO PRN (13:30)
[2022-05-24] MEDS ORDERED: ACETAMINOPHEN 325 MG TAB PO PRN (13:30)
[2022-05-24] MEDS ORDERED: ONDANSETRON ODT 4 MG TAB PO PRN ×2 (13:30)
[2022-05-24 15:00] VITALS: BP 112/76
[2022-05-24 16:22] VITALS: BP 104/67
[2022-05-24] MEDS: ACETAMINOPHEN 325 MG TAB PO PRN ×2 (16:43→20:53)
[2022-05-24] MEDS ORDERED: IBUPROFEN 800 MG TAB PO SCH ×2 (18:00)
[2022-05-24 18:45] VITALS: BP 108/62
[2022-05-24] MEDS ORDERED: DOCUSATE SOD 100 MG CAP PO SCH (22:00)
[2022-05-24 23:00] VITALS: BP 116/64
[2022-05-25] MEDS: ACETAMINOPHEN 325 MG TAB PO PRN ×3 (02:53→12:27)
[2022-05-25 03:00] VITALS: BP 126/70
[2022-05-25 06:40] VITALS: BP 115/75
[2022-05-25 08:07] LABS: RPR Non Reactive (Non Reactive)
[2022-05-25 09:52] VITALS: BP 103/64
[2022-05-25 16:00] VITALS: BP 115/74
== END 2022-05-25 16:10 | disposition home or self-care (01) | DRG 807 ==
LOC: LDRP 02:17 → OBSVTOIN 02:45 → LDRP 03:10
PROVIDERS: ADMIT Obstetrics & Gynecology; ATTEND Obstetrics & Gynecology
PROC: 10E0XZZ Delivery of Products of Conception, External Approach (ICD-10-PCS; principal; 2022-05-24)
PROC: 0HQ9XZZ Repair Perineum Skin, External Approach (ICD-10-PCS; 2022-05-24)
PROC: 3E0R3BZ Introduction of Anesthetic Agent into Spinal Canal, Percutaneous Approach (ICD-10-PCS; 2022-05-24)
PROC: 00HU33Z Insertion of Infusion Device into Spinal Canal, Percutaneous Approach (ICD-10-PCS; 2022-05-24)
DX: O77.0 Labor and delivery complicated by meconium in amniotic fluid (principal); Z37.0 Single live birth; Z20.822 Contact with and (suspected) exposure to COVID-19; Z88.8 Allergy status to other drugs, medicaments and biological substances; Z3A.38 38 weeks gestation of pregnancy; O70.0 First degree perineal laceration during delivery
CPT/HCPCS: 36415; 59025; 59409; 62282; 80053; 80307; 81001; 81002; 85025; 85610; 85730; 86592; 86850; 86900; 86901; 87426; 94760; 94762; 96360; 96361; 96365; 96366; G0378; J2590

== ENCOUNTER 2022-08-06 08:55 | Emergency (ER) | payer BC ==
[~2022-08-06] VITALS: Ht 160 cm; Wt 153.0 kg
[~2022-08-06 08:55] MED LIST changes: -AMOX-277 PO; -CEPH-322 PO; -PRED20TA2 PO; -PREN-96 OR
[2022-08-06] MEDS ORDERED: cefTRIAXone SOD 1,000 MG VL IM ONE (09:15)
[2022-08-06 09:17] VITALS: BP 124/77
[2022-08-06] MEDS ORDERED: LIDO2SOL23 MT (09:25)
[2022-08-06] MEDS ORDERED: AZIT250T8 PO (09:25)
== END 2022-08-06 09:32 | disposition home or self-care (01) ==
LOC: ER 08:55
DX: J02.9 Acute pharyngitis, unspecified (principal); F12.90 Cannabis use, unspecified, uncomplicated; Z88.8 Allergy status to other drugs, medicaments and biological substances; Z79.899 Other long term (current) drug therapy; Z88.6 Allergy status to analgesic agent; Z90.89 Acquired absence of other organs
CPT/HCPCS: 96372; 99283; J0696

== ENCOUNTER 2022-11-03 09:27 | Emergency (ER) | payer BC ==
[~2022-11-03] VITALS: Ht 157.5 cm; Wt 73.3 kg
[~2022-11-03 09:27] MED LIST changes: +AZIT250T8 PO; +LIDO2SOL23 MT
[2022-11-03 09:35] VITALS: BP 114/81
[2022-11-03] MEDS ORDERED: METH4PAK PO (10:25)
[2022-11-03] MEDS ORDERED: ACE3T PO (10:25)
[2022-11-03] MEDS ORDERED: methylPREDNISolone SOD SUCC 125 MG/2 ML VL IM ONE (10:30)
[2022-11-03] MEDS ORDERED: KETOROLAC TROMETH 30 MG/ML 1ML VIAL IM ONE (10:30)
== END 2022-11-03 10:47 | disposition home or self-care (01) ==
LOC: ER 09:27
DX: M25.511 Pain in right shoulder (principal); F12.90 Cannabis use, unspecified, uncomplicated; Z90.89 Acquired absence of other organs; Z79.899 Other long term (current) drug therapy; Z88.6 Allergy status to analgesic agent; Z88.8 Allergy status to other drugs, medicaments and biological substances
CPT/HCPCS: 96372; 99284; J1885; J2930

== ENCOUNTER 2023-06-29 09:50 | Emergency (ER) | payer BC ==
[~2023-06-29] VITALS: Ht 160 cm; Wt 77.2 kg
[~2023-06-29 09:50] MED LIST changes: +ACE3T PO; +AZIT-81 PO; -AZIT250T8 PO; -LIDO2SOL23 MT; +LIDO2SOL26 MT; +METH4PAK PO
[2023-06-29 10:53] VITALS: BP 149/80; PULSE 84; RESP 16; TEMP 97.7; O2SAT 97
[2023-06-29] MEDS ORDERED: PROCHLORPERAZINE EDISYLATE 5 MG/ML 2ML VIAL IM ONE (11:30)
[2023-06-29] MEDS ORDERED: PROCHLORPERAZINE EDISYLATE 5 MG/ML 2ML VIAL IV ONE (11:30)
[2023-06-29] MEDS ORDERED: KETOROLAC TROMETH 30 MG/ML 1ML VIAL IM ONE (11:30)
[2023-06-29] MEDS ORDERED: SODIUM CHLORIDE 0.9% 1,000 ML IV ONE (11:30)
[2023-06-29] MEDS ORDERED: diphenhdrAMINE HCL 50 MG/1 ML VL IV ONE (11:30)
[2023-06-29] MEDS ORDERED: DexAMETHasone SOD PHOS 10MG/1ML VIAL INJ IV ONE (14:00)
== END 2023-06-29 14:24 | disposition home or self-care (01) ==
LOC: ER 09:50 → EEVIPCON 09:50 → ER 14:24
DX: G43.909 Migraine, unspecified, not intractable, without status migrainosus (principal); F12.10 Cannabis abuse, uncomplicated; Z90.89 Acquired absence of other organs
CPT/HCPCS: 96361; 96372; 96374; 96375; 99284; J0780; J1100; J1200; J1885; J7030

== ENCOUNTER 2023-07-14 07:39 | Emergency (ER) | payer BC ==
[~2023-07-14] VITALS: Ht 160 cm; Wt 78.6 kg
[2023-07-14 08:55] VITALS: BP 110/82; PULSE 97; RESP 16; TEMP 97.8; O2SAT 99
[2023-07-14] MEDS ORDERED: ONDANSETRON ODT 4 MG TAB PO ONE (09:00)
[2023-07-14] MEDS ORDERED: SUMAtriptan SUCCINATE 6 MG/0.5 ML VL SC ONE (09:00)
[2023-07-14] MEDS ORDERED: ZOFR4T PO (09:10)
[2023-07-14] MEDS ORDERED: SUMA50TA2 PO (09:10)
== END 2023-07-14 09:38 | disposition home or self-care (01) ==
LOC: ER 07:39
DX: G43.009 Migraine without aura, not intractable, without status migrainosus (principal); F15.90 Other stimulant use, unspecified, uncomplicated; Z98.890 Other specified postprocedural states
CPT/HCPCS: 96372; 99283; J3030; Q0162

== ENCOUNTER 2023-11-17 09:55 | Emergency (ER) | payer BC ==
[~2023-11-17] VITALS: Ht 160 cm; Wt 76.7 kg
[~2023-11-17 09:55] MED LIST changes: +AZIT-185 PO; -AZIT-81 PO; +SUMA50TA2 PO; +ZOFR4T PO
[2023-11-17] MEDS ORDERED: METH4PAK PO (10:48)
[2023-11-17] MEDS: KETOROLAC TROMETH 60MG/2ML VIAL IM ONE (10:52)
[2023-11-17] MEDS: methylPREDNISolone SOD SUCC 125 MG/2 ML VL IM ONE (10:53)
[2023-11-17 10:54] VITALS: BP 129/84; PULSE 81; RESP 16; TEMP 98.7; O2SAT 98
== END 2023-11-17 11:08 | disposition home or self-care (01) ==
LOC: ER 09:55
DX: S39.012A Strain of muscle, fascia and tendon of lower back, initial encounter (principal); M51.36 Other intervertebral disc degeneration, lumbar region; G89.29 Other chronic pain; Z90.89 Acquired absence of other organs; Z79.2 Long term (current) use of antibiotics; Z79.899 Other long term (current) drug therapy; Z88.8 Allergy status to other drugs, medicaments and biological substances; X50.1XXA Overexertion from prolonged static or awkward postures, initial encounter; Y93.89 Activity, other specified; Y92.89 Other specified places as the place of occurrence of the external cause; Y99.8 Other external cause status
CPT/HCPCS: 96372; 99284; J1885; J2919

== ENCOUNTER 2024-08-07 16:56 | Inpatient (IN) | payer BC ==
[~2024-08-07] VITALS: Ht 157.5 cm; Wt 80.9 kg
--- NOTE | 2024-08-07 17:28 | ED.PDOC ---
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 23-year-old female presents to emergency department for evaluation of right lower quadrant pain nonradiating. Onset of symptoms yesterday. Got worse today. No particular alleviating or precipitating factors. Patient states that this is similar to previous episodes of ovarian cyst pain. Denies any other a ssociated symptoms. Patient denies any history of STDs. Most recent pelvic exam was few months ago and was normal. Denies any . Patient has an IUD she states. Patient denies any vaginal bleeding. Past Medcial History: Ovarian cyst, endometriosis Past Surgical History: Tonsillectomy adenoidectomy, laparoscopic procedure for endometriosis, presence of IUD REVIEW OF SYSTEMS: CONSTITUTIONAL: Denies acute: fever, diaphoresis, chills, generalized weakness. HEAD: Denies acute: headache, photophobia Eyes: Denies acute: Double vision, vision loss, eye pain, eye discharge. EARS: Denies acute: tinnitus, hearing loss, ear discharge, ear pain, THROAT: Denies acute: sore throat, swelling, difficulty swallowing , pain with swallowing, change in voice. NECK: Denies acute: neck pain, neck swelling, stiff neck. HEART: Denies acute : chest pain, palpitations, LUNGS: Denies acute: SOB, wheezing, cough, hemoptysis ABDOMEN: Denies acute: Nausea, Vomiting, diarrhea, melena , hematemesis, hematochezia SKIN: Denies acute: rash, redness, lesions, itchiness. EXTREMITIES: Denies acute: calf pain, numbness, tingling, weakness, denies pain in extremity. Denies acute: Low back pain. Neuro: Denies acute: focal neurological deficit, motor or sensory focal neurological deficit, tremors, seizure like activity, confusion, dizziness, change in mental status, loss of bowel or bladder function, cauda equina like symptoms. : Denies acute: dysuria, hematuria, flank pain, increase in urinary frequency. PSYCH: Denies acute: hallucination, suicidal ideation, homicidal ideation. FEMALE: Denies acute: abnormal vaginal bleeding, foul odor, unusual discharge. PHYSICAL EXAM: General: no acute distress, awake and alert. Head: normocephalic, atraumatic. Neck: supple, trachea is midline, no swelling. Throat: Normal phonation. Eyes:, no erythema, no purulent discharge, no proptosis, no icterus. Heart: regular rate, regular rhythm, no significant murmur appreciated. Lungs: no apparent respiratory distress, Able to speak in full sentences. No wheezing, no rhonchi, no crackles. No stridors Clear to auscultation bilaterally. Abdomen: Right lower quadrant tender to palpation, non distended, soft, no guarding, no rebound, + bowel sounds. Neuro: Awake, Alert, oriented to name, self, situation, follows commands GCS=15. Speech is normal. Skin: no petechia, no purpura, no cyanosis, non-pale, not jaundice. Lower extremities: --no - Pitting edema no deformity, no focal swelling, no calf TTP. Makes eye contact. moves all four extremities. Face: no apparent facial droop. Ambulating in the ED independently. Chief Complaint: Pelvic Pain Time Seen by MD: 17:02 Reviewed Notes: Nurses Notes, Allergies Allergies: Coded Allergies: Ibuprofen (Verified Allergy, Severe, 04/07/22) Elagolix (Verified Allergy, Unknown, 04/07/22) Home Meds Active Scripts Diclofenac Potassium (Diclofenac Potassium) 50 Mg Tab, 50 MG PO TID for 10 Days, #30 TAB please take for 5 days, between tylenol 1gr tylenol TID diclofenac 50mg TID keep diclofenac for premedication 5 days before periods Prov:ALLY COTA RESIDENT 08/08/24 Acetaminophen (Tylenol) 325 Mg Cap, 1000 MG PO Q8HR for 10 Days, #30 CAP Prov:ALLY COTA RESIDENT 08/08/24 Methylprednisolone (Medrol Dosepak) 4 Mg Ceasar, 4 MG PO UD, #21 TAB UAD Prov:GWENDOLYN DIAS 11/17/23 Acetaminophen (Tylenol 8 Hour Arthritis) 650 Mg Tab, 650 MG PO TID, #40 TAB Prov:GWENDOLYN DIAS 11/17/23 Ondansetron Odt 4MG Tab (ZOFRAN PO) 4 Mg Tb, 4 MG PO BID, #14 TAB ODT TAB-DISSOLVE IN MOUTH, THEN SWALLOW Prov:GWENDOLYN DIAS 07/14/23 Sumatriptan Succinate (Imitrex) 50 Mg Tab, 1 TAB PO TID, #20 TAB Prov:GWENDOLYN DIAS 07/14/23 Acetaminophen W/ Codeine (Tylenol W/Cod #3) 1 Tab Tb, 1 TAB PO TID PRN, #20 TAB Prov:BRITTANI SUAREZP 11/03/22 Methylprednisolone (Medrol Dosepak) 4 Mg Ceasar, 4 MG PO UD, #21 TAB UAD Prov:BRITTANI SUAREZP 11/03/22 Lidocaine HCl (Mouth-Throat) (Lidocaine HCl Viscous) 2 % Cora, 5 ML MT TID, #100 ML Prov:GWENDOLYN DIAS 08/06/22 Azithromycin (ZITHROMAX TABLET) 250 Mg Tb, 250 MG PO DAILY, #6 TAB Prov:GWENDOLYN DIAS 08/06/22 Acetaminophen (Tylenol 8 Hour Arthritis) 650 Mg Tab, 650 MG PO TID, #30 TAB Prov:GWENDOLYN DIAS 12/16/21 Benzonatate (Benzonatate) 100 Mg Cap, 1 CAP PO TID PRN, #30 CAP 0 Refills Prov:KATHY HICKEY 07/08/21 Reported Medications Floxuridine (Floxuridine) 0.5 Gm Inj, 10 MG IJ DAILY, INJ 04/06/22 Calcium Carbonate (Tums) 500 Mg Chw, 500 MG PO PRN, TAB.CHEW 04/06/22 Vit W/ Ferrous Fumara ( One Daily) Daily Tab, 1 TAB PO DAILY, #90 TAB 3 Refills 04/06/22 Information Source: Patient Past Medical History PAST MEDICAL HISTORY: UTI'S Surgical History: Tonsillectomy KING MAKER 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 Was a procedure done?: No Differential Diagnosis (KING MAKER) Vaginal Bleeding: N/A Comments DDX include Diverticulitis, colitis, gastroenteritis, acute abdomen, SBO, enteritis, constipation, volvulus, appendicitis, Gallbladder disease, choledocolithiasis, ascending cholangitis, pancreatitis, intraAbdominal mass/neoplasm, hepatitis, UTI, pylonephritis, kidney stone, aneurysm, dissection, Inflammatory bowel disease, gastroparesis, ischemic bowel, ovarian torsion, ovarian cyst/mass, tubo-ovarian abscess, , ectopic , PID, STD. X-Ray, Labs, Meds, VS Vital Signs Date Time Temp Pulse Resp B/P (MAP) Pulse Ox O2 Delivery O2 Flow Rate FiO2 08/07/24 18:20 96 16 100 Room Air* 0 21 08/07/24 18:20 96 16 118/84 (95) 100 08/07/24 17:13 98.1 89 17 125/80 (95) 98 Lab Test 08/07/24 19:04 08/07/24 17:41 Range/Units Urine Color Yellow Yellow Urine Clarity Turbid H Clear Urine pH 6.5 5.0-9.0 Urine Specific [place] 1.024 1.001-1.035 Urine Protein Negative Negative Urine Ketones Negative Negative Urine Blood Negative Negative /uL Urine Nitrite Negative Negative Urine Bilirubin Negative Negative Urine Urobilinogen Normal Negative mg/dL Urine Leukocyte Esterase Negative Negative /uL Urine RBC 2 0 - 4 /hpf Urine Microscopic WBC 2 0-5 /HPF Urine Squamous Epithelial Cells Mod <5 /hpf Urine Bacteria Few H None Seen /hpf Urine Glucose Normal Normal mg/dL Urine Test Negative Negative White Blood Count 18.1 H 4.4-10.8 10^3/uL Red Blood Count 4.39 4.0-5.20 10^6/uL Hemoglobin 14.0 12.2-16.2 g/dL Hematocrit 41.0 36.0-46.0 % Mean Corpuscular Volume 93.4 80.0-100.0 fL Mean Corpuscular Hemoglobin 31.9 28.0-32.0 pg Mean Corpuscular Hemoglobin Concent 34.1 32.0-36.0 g/dL Red Cell Distribution Width 12.9 11.8-14.3 % Platelet Count 331 140-450 10^3/uL Mean Platelet Volume 9.0 6.9-10.8 fL Neutrophils (%) (Auto) 84.4 H 37.0-80.0 % Lymphocytes (%) (Auto) 11.5 10.0-50.0 % Monocytes (%) (Auto) 3.9 0.0-12.0 % Eosinophils (%) (Auto) 0.0 0.0-7.0 % Basophils (%) (Auto) 0.2 0.0-2.0 % Neutrophils # (Auto) 15.3 H 1.6-8.6 10 ^3/uL Lymphocytes # (Auto) 2.1 0.4-5.4 10 ^3/uL Monocytes # (Auto) 0.7 0-1.3 10 ^3/uL Eosinophils # (Auto) 0 0-0.8 10 ^3/uL Basophils # (Auto) 0 0-0.2 10 ^3/uL Nucleated Red Blood Cells 0.0 % Sodium Level 139 136-145 mmol/L Potassium Level 4.1 3.5-5.1 mmol/L Chloride Level 106 98-107 mmol/L Carbon Dioxide Level 23 20-31 mmol/L Anion Gap 10 5-15 Blood Urea Nitrogen 10 9-23 mg/dL Creatinine 0.80 0.550-1.02 mg/dL Glomerular Filtration Rate Calc 105 >90 mL/min BUN/Creatinine Ratio 12.5 10.0-20.0 Serum Glucose 126 H 74-106 mg/dL Lactic Acid Level 1.8 0.4-2.0 mmol/L Calcium Level 10.3 8.7-10.4 mg/dL Total Bilirubin 0.2 0.2-1.0 mg/dL Aspartate Amino Transferase (AST) 9 L 13-40 U/L Alanine Aminotransferase (ALT) 18 7-40 U/L Alkaline Phosphatase 79 46-116 U/L Total Protein 6.9 5.7-8.2 g/dL Albumin 5.0 H 3.2-4.8 g/dL Current Medications Medications (Trade) Dose Ordered Sig/Renea Route Start Time Stop Time Status Last Admin Piperacillin Sod/ Tazobactam Sod 100 ml @ 100 mls/hr ONCE ONCE IV 08/07/24 20:45 08/07/24 21:44 DC 08/07/24 23:35 Fentanyl Citrate 100 mcg ONCE ONCE IV 08/07/24 21:00 08/07/24 21:01 DC 08/07/24 23:27 Sodium Chloride 1,000 ml @ 1,000 mls/hr Q1H ONCE IV 08/07/24 21:00 08/07/24 21:59 DC 08/07/24 23:[address] [address] Ph: [phone] DIAGNOSTIC IMAGING Diagnostic Imaging Report : [id number] Signed PATIENT: VERITO BRIONES ACCT: [id number] UNIT: [id number] : 2000 LOC: ER ROOM / BED: / AGE / SEX: 23 / F ADM STATUS: REG ER SERVICE [id number] ORDERING PHYSICIAN: JANAK DIANA DO PROCEDURE(s): ABPL - CT AB PEL WO CON-NO ORAL OR IV REASON: RLQ PAIN ORDER NUMBER(s): [id number], ACCESSION NUMBER(s): [id number] Procedure: CT CT AB PEL WO CON-NO ORAL OR IV 08/07/2024 07:31 PM Indication: RLQ PAIN Comparison Study: None available at time of dictation. Technique: Axial images were obtained and reformatted in coronal and sagittal planes. All CT scans at this medical facility are performed using dose modulation techniques as appropriate to a performed exam including the following: Automated exposure control was utilized; adjustment of the MA and/or KV according to patient size; and use of iterative reconstruction technique. CT Dose: CTDI volume is 11.52 mGy. Dose-length product is 666.9 mGy*cm FINDINGS: Lower Chest: Unremarkable. Hepatobiliary: Unremarkable. Spleen: Unremarkable. Pancreas: Unremarkable. Adrenal Glands: Unremarkable. tract: The kidneys are normal in size bilaterally without hydronephrosis or nephrolithiasis. The urinary bladder is unremarkable. GI tract: The stomach is grossly normal in appearance. No evidence of small bowel obstruction. The large bowel is unremarkable. Mild fecal retention. The appendix is not seen with certainty. No inflammatory changes noted in the right lower quadrant. Lymphatics: No mesenteric, retroperitoneal or periportal lymphadenopathy. Vasculature: The abdominal aorta is normal in in caliber. Pelvic Organs: Anteverted uterus containing an intrauterine device. Bones/soft tissues: No acute abnormality. Other: None. IMPRESSION: 1. No CT evidence of acute abnormality in the abdomen and pelvis. No hydronephrosis or urolithiasis. The appendix is not seen with certainty. No inflammatory changes noted in right lower quadrant. 2. Mild fecal retention. ATED BY: JIE ARGUETA MD DICTATED DATE/TIME: 08/07/242008 SIGNED BY: IJE ARGUETA MD SIGNED DATE/TIME: 08/07/242008 CC: [address]: [phone] DIAGNOSTIC IMAGING Diagnostic Imaging Report : [id number] Signed PATIENT: VERITO BRIONES ACCT: [id number] UNIT: [id number] : 2000 LOC: ER ROOM / BED: / AGE / SEX: 23 / F ADM STATUS: REG ER SERVICE [id number] ORDERING PHYSICIAN: JANAK DIANA DO PROCEDURE(s): PELUS - PELVIC REASON: RLQ pain ORDER NUMBER(s): [id number], ACCESSION NUMBER(s): [id number] Procedure: US PELVIC Study Date and Requested Time: 08/07/2024 05:45 PM Study Description: US PELVIC History: RLQ pain Comparison: None Technique: Multiple transabdominal and transvaginal high resolution chisholm-scale images obtained of the uterus and adnexa with color Doppler for evaluation of adnexal blood flow and vascularity as indicated. Findings: Uterus measures 7.9 x 3.4 x 4 cm, with homogeneous echotexture. Endometrium within normal limits, measuring 0.8 cm in thickness with smooth contour. Cervix within normal limits. Intrauterine device is noted in place. Right ovary measures 1.9 x 3.1 x 2.1 cm with a 1.2 cm dominant follicle. Left ovary measures 2.6 x 1.7 x 2.4 cm. Normal ovarian color Doppler flow bilaterally. No evidence of free fluid in the cul-de-sac. Impression: Unremarkable sonographic study of the pelvis. Intrauterine device is noted in place. ATED BY: DELPHINE MILLER DO DICTATED DATE/TIME: 08/07/241835 SIGNED BY: DELPHINE MILLER DO SIGNED DATE/TIME: 08/07/241835 CC: Time of 1ST Reevaluation: 00:00 Reevaluation 1ST: Improved Patient Education/Counseling: Diagnosis, Treatment Family Education/Counseling: Other Comments Patient presented with the above HPI. Abdominal pain/pelvic pain workup was initiated. patient was found with the above mentioned diagnosis. the following medications were ordered: HYDROCODONE the following tests were ordered: LABS, TRANSVAG US, PELVIC US, CT scan abdomen and pelvis. Patient ED course and VS have been stabilized. Patient has been reassessed in the ED and remained in a stable condition. Pertinent incidental findings were discussed with the patient and/or family. Patient/family voices understanding and is agreeable with plan. Patient has been observed in the ED adequate length of time to insure improvement/stability. Escalation of care considered: Consideration of escalation to observation or admission Patient was found with leukocytosis and right lower quadrant pain of unknown etiology. CT scan and pelvic ultrasound were obtained. Can not fully rule out appendicitis. Patient was ADMITTED to the medicine team for further evaluation and treatment of their presentation. Departure 1 Departure Time of Disposition: 20:40 Impression: Primary Impression: Right lower quadrant pain Additional Impression: Leukocytosis Disposition: ADMITTED INPATIENT Admit to: Tele Condition: Guarded e-Prescriptions Diclofenac Potassium (Diclofenac Potassium) 50 Mg Tab 50 MG PO TID for 10 Days, #30 TAB please take for 5 days, between tylenol 1gr tylenol TID diclofenac 50mg TID keep diclofenac for premedication 5 days before periods Prov: ALLY COTA RESIDENT 08/08/24 Acetaminophen (Tylenol) 325 Mg Cap 1000 MG PO Q8HR for 10 Days, #30 CAP Prov: ALLY COTA RESIDENT 08/08/24 Discharged With: Self Critical Care Note Critical Care Time?: No I personally scribed for JANAK DIANA DO ([email or web address]) on 08/07/24 at 18:39. Electronically submitted by Padmini Keith ([email or web address]). I personally scribed for JANAK DIANA DO ([email or web address]) on 08/07/24 at 20:26. Electronically submitted by Farida Crawford ([email or web address]). JANAK DIANA DO Aug 07, 2024 17:28
[2024-08-07] MEDS: HYDROcodone-ACET 5/325MG TAB PO ONE (18:18)
[2024-08-07 18:20] VITALS: PULSE 96; RESP 16; O2SAT 100
[2024-08-07 18:33] LABS: Basophils # (auto) 0 10 ^3/uL (0-0.2); Basophils % (auto) 0.2 % (0.0-2.0); Eosinophils # (auto) 0 10 ^3/uL (0-0.8); Lymphocytes # (auto) 2.1 10 ^3/uL (0.4-5.4); Lymphocytes % (auto) 11.5 % (10.0-50.0); Mean Corpuscular Hemoglobin 31.9 pg (28.0-32.0); Mean Corpuscular Hgb Conc. 34.1 g/dL (32.0-36.0); Mean Corpuscular Volume 93.4 fL (80.0-100.0); Monocytes # (auto) 0.7 10 ^3/uL (0-1.3); Monocytes % (auto) 3.9 % (0.0-12.0); Neutrophils # (auto) 15.3 10 ^3/uL (1.6-8.6); Neutrophils % (auto) 84.4 % (37.0-80.0); Platelet Count (auto) 331 10^3/uL (140-450); Red Blood Cells 4.39 10^6/uL (4.0-5.20); Red Cell Distribution Width 12.9 % (11.8-14.3); White Blood Cell 18.1 10^3/uL (4.4-10.8)
--- NOTE | 2024-08-07 18:39 | DVH ---
Procedure: US PELVIC Study Date and Requested Time: 08/07/2024 05:45 PM Study Description: US PELVIC History: RLQ pain Comparison: None Technique: Multiple transabdominal and transvaginal high resolution chisholm-scale images obtained of the uterus and adnexa with color Doppler for evaluation of adnexal blood flow and vascularity as indicat ed. Findings: Uterus measures 7.9 x 3.4 x 4 cm, with homogeneous echotexture. Endometrium within normal limits, nicolás suring 0.8 cm in thickness with smooth contour. Cervix within normal limits. Intrauterine device is noted in place. Right ovary measures 1.9 x 3.1 x 2.1 cm with a 1.2 cm dominant follicle. Left ovary measures 2.6 x 1. 7 x 2.4 cm. Normal ovarian color Doppler flow bilaterally. No evidence of free fluid in the cul-de-sac. Impression: Unremarkable sonographic study of the pelvis. Intrauterine device is noted in place.
[2024-08-07 18:46] LABS: Alanine Aminotransferase 18 U/L (7-40); Alkaline Phosphatase 79 U/L (46-116); Anion Gap 10 (5-15); BUN/Creatinine Ratio 12.5 (10.0-20.0); Blood Urea Nitrogen 10 mg/dL (9-23); Calcium 10.3 mg/dL (8.7-10.4); Carbon Dioxide 23 mmol/L (20-31); Chloride 106 mmol/L (98-107); Potassium 4.1 mmol/L (3.5-5.1); Sodium 139 mmol/L (136-145)
[2024-08-07 18:47] LABS: Total Protein 6.9 g/dL (5.7-8.2)
[2024-08-07 18:51] LABS: Aspartate Aminotransferase 9 U/L (13-40); Bilirubin, Total 0.2 mg/dL (0.2-1.0); Glucose 126 mg/dL (74-106)
[2024-08-07 19:30] LABS: Urine Bacteria FEW /hpf (None Seen); Urine Blood Negative /uL (Negative); Urine Clarity Turbid (Clear); Urine Color Yellow (Yellow); Urine Protein, UAD Negative (Negative); Urine Specific Gravity 1.024 (1.001-1.035); Urine Squamous Epithelial Cell MOD /hpf (<5); Urine Urobilinogen Normal (Negative); Urine WBC 2 /HPF (0-5); Urine pH 6.5 (5.0-9.0)
--- NOTE | 2024-08-07 20:11 | DVH ---
Procedure: CT CT AB PEL WO CON-NO ORAL OR IV 08/07/2024 07:31 PM Indication: RLQ PAIN Comparison Study: None available at time of dictation. Technique: Axial images were obtained and reformatted in coronal and sagittal planes. All CT scans at this medical facility are performed using dose modulation techniques as appropriate t o a performed exam including the following: Automated exposure control was utilized; adjustment of th e MA and/or KV according to patient size; and use of iterative reconstruction technique. CT Dose: CTDI volume is 11.52 mGy. Dose-length product is 666.9 mGy*cm FINDINGS: Lower Chest: Unremarkable. Hepatobiliary: Unremarkable. Spleen: Unremarkable. Pancreas: Unremarkable. Adrenal Glands: Unremarkable. tract: The kidneys are normal in size bilaterally without hydronephrosis or nephrolithiasis. The urinary bladder is unremarkable. GI tract: The stomach is grossly normal in appearance. No evidence of small bowel obstruction. The la rge bowel is unremarkable. Mild fecal retention. The appendix is not seen with certainty. No inflamm atory changes noted in the right lower quadrant. Lymphatics: No mesenteric, retroperitoneal or periportal lymphadenopathy. Vasculature: The abdominal aorta is normal in in caliber. Pelvic Organs: Anteverted uterus containing an intrauterine device. Bones/soft tissues: No acute abnormality. Other: None. IMPRESSION: 1. No CT evidence of acute abnormality in the abdomen and pelvis. No hydronephrosis or urolithiasis. The appendix is not seen with certainty. No inflammatory changes noted in right lower quadrant. 2. Mild fecal retention.
--- NOTE | 2024-08-07 22:57 | DVHHPRES ---
History of Present Illness Resident Creating Document: PRIYA KIDD RESDIENT History of Present Illness This is a 33-year-old female with past medical history of endometriosis, migraine and herniated lower back disc came to the hospital due to abdominal pain since 1 days. Pain is localized at right lower quadrant with radiating to the left lower quadrant, constant, burning/stabbing in nature, 7/10, which increased with mobility and changing position. She also reports generalized body pain, nausea, urgency type of urinary incontinence and frequency. She denies fever, cough, shortness of breath, vomiting, constipation, or any recent sick contacts. PMHx: Endometriosis (status post laparoscopy surgery 5 years back), migraine and an herniated lower back disc PSHx: Laparoscopic surgery for the endometriosis Social history: Ex-smoker with 10 pack year history, denies current smoking or any other drug use Home medication: Melatonin (for sleep), sumatriptan 5 mg as needed for migraine, cyclobenzaprine for low back pain, IUD (for contraception, since November 2023) Allergic history: Elagolix and ibuprofen Review of Systems Review of Systems General: Reports generalized body pain HEENT: No headaches, visiual changes, hearing loss, tinnitus, nasal congestion and discharge, and sore throat. Cardiovascular: Denies chest pain, palpitations, dyspnea on exertion, orthopnea, or claudication. Respiratory: No cough, and wheezing. Gastrointestinal: Reports nausea Genitourinary: Reports urgency type urinary incontinence and frequency Endocrine: No heat or cold intolerance, polydipsia, polyuria, and polyphagia. Neurological: No dizziness, extremity weakness and numbness, tremors, gait disturbance, seizures, and memory impairment. Psychiatric: Denies depression, anxiety,or insomnia. Musculoskeletal: Denies neck pain, stiffness and swelling, back pain, muscle weakness, joint pain, stiffness, swelling, or limited range of motion. Skin: No rashes, itching, skin lesion, changes in hair, nail, skin texture and breast. Hematologic/Lymphatic: Denies easy bruising, bleeding tendencies, or lymph node enlargement. Allergies: Coded Allergies: Ibuprofen (Verified Allergy, Severe, 04/07/22) Elagolix (Verified Allergy, Unknown, 04/07/22) Exam Vital Signs Vital Signs Date Time Temp Pulse Resp B/P (MAP) Pulse Ox O2 Delivery O2 Flow Rate FiO2 08/07/24 18:20 96 16 100 Room Air* 0 21 08/07/24 18:20 118/84 (95) 08/07/24 17:13 98.1 Exam General Appearance: Alert, Oriented X3, Cooperative, No acute distress HEENT: Atraumatic, PERRLA, EOMI, Mucous membrane moist/pink Respiratory: Clear to auscultation, Normal air movement Cardiovascular: Regular rate, Normal S1, Normal S2, No murmurs, no chest wall tenderness Abdominal: Lower abdominal tenderness Extremities: No clubbing, No cyanosis, No edema, Normal pulses, No tenderness/swelling Skin: No rashes, No breakdown, No significant lesion Neuro: Normal gait, Normal speech, Strength at 5/5 X4 ext, Normal tone, Sensation intact, Cranial nerves 3-12 NL, Reflexes 2+ Psych/Mental Status: Mental status NL, Mood NL Labs/Xrays Labs Test 08/07/24 19:04 08/07/24 17:41 Range/Units Urine Color Yellow Yellow Urine Clarity Turbid H Clear Urine pH 6.5 5.0-9.0 Urine Specific [place] 1.024 1.001-1.035 Urine Protein Negative Negative Urine Ketones Negative Negative Urine Blood Negative Negative /uL Urine Nitrite Negative Negative Urine Bilirubin Negative Negative Urine Urobilinogen Normal Negative mg/dL Urine Leukocyte Esterase Negative Negative /uL Urine RBC 2 0 - 4 /hpf Urine Microscopic WBC 2 0-5 /HPF Urine Squamous Epithelial Cells Mod <5 /hpf Urine Bacteria Few H None Seen /hpf Urine Glucose Normal Normal mg/dL Urine Test Negative Negative White Blood Count 18.1 H 4.4-10.8 10^3/uL Red Blood Count 4.39 4.0-5.20 10^6/uL Hemoglobin 14.0 12.2-16.2 g/dL Hematocrit 41.0 36.0-46.0 % Mean Corpuscular Volume 93.4 80.0-100.0 fL Mean Corpuscular Hemoglobin 31.9 28.0-32.0 pg Mean Corpuscular Hemoglobin Concent 34.1 32.0-36.0 g/dL Red Cell Distribution Width 12.9 11.8-14.3 % Platelet Count 331 140-450 10^3/uL Mean Platelet Volume 9.0 6.9-10.8 fL Neutrophils (%) (Auto) 84.4 H 37.0-80.0 % Lymphocytes (%) (Auto) 11.5 10.0-50.0 % Monocytes (%) (Auto) 3.9 0.0-12.0 % Eosinophils (%) (Auto) 0.0 0.0-7.0 % Basophils (%) (Auto) 0.2 0.0-2.0 % Neutrophils # (Auto) 15.3 H 1.6-8.6 10 ^3/uL Lymphocytes # (Auto) 2.1 0.4-5.4 10 ^3/uL Monocytes # (Auto) 0.7 0-1.3 10 ^3/uL Eosinophils # (Auto) 0 0-0.8 10 ^3/uL Basophils # (Auto) 0 0-0.2 10 ^3/uL Nucleated Red Blood Cells 0.0 % Sodium Level 139 136-145 mmol/L Potassium Level 4.1 3.5-5.1 mmol/L Chloride Level 106 98-107 mmol/L Carbon Dioxide Level 23 20-31 mmol/L Anion Gap 10 5-15 Blood Urea Nitrogen 10 9-23 mg/dL Creatinine 0.80 0.550-1.02 mg/dL Glomerular Filtration Rate Calc 105 >90 mL/min BUN/Creatinine Ratio 12.5 10.0-20.0 Serum Glucose 126 H 74-106 mg/dL Lactic Acid Level 1.8 0.4-2.0 mmol/L Calcium Level 10.3 8.7-10.4 mg/dL Total Bilirubin 0.2 0.2-1.0 mg/dL Aspartate Amino Transferase (AST) 9 L 13-40 U/L Alanine Aminotransferase (ALT) 18 7-40 U/L Alkaline Phosphatase 79 46-116 U/L Total Protein 6.9 5.7-8.2 g/dL Albumin 5.0 H 3.2-4.8 g/dL Assessment/Plan Assessment/Plan Intractable abdominal pain possibly due to endometriosis History of endometriosis History of herniated low back disk Abdominopelvic CT scan and ultrasounds are normal IV fluid Thrall p.r.n. Obesity, grade 1 Next DIET: Regular diet DVT PROPHYLAXIS: SCDs CODE STATUS: Goal of care discussed for more than 21 minutes, full code DISPOSITION: Med/surg Patient's status and paln discussed with the patient. Case discussed with Dr. Gilliland. Plan discussed with: Patient, Other HEWADMAL,HEWAD RESDIENT Aug 07, 2024 22:57
[2024-08-07] MEDS: fentaNYL CITRATE 100 MCG/2 ML VL IV ONE (23:27)
[2024-08-07] MEDS: SODIUM CHLORIDE 0.9% 1,000 ML IV ONE (23:32)
[2024-08-07] MEDS: PIPERACILLIN-TAZOB 3.375GM 100 ML IV ONE (23:35)
[2024-08-07 23:39] VITALS: O2SAT 98
[2024-08-08 00:29] VITALS: BP 118/79; PULSE 81; RESP 16; TEMP 98.2; O2SAT 97
[2024-08-08] MEDS ORDERED: ACETAMINOPHEN 325 MG TAB PO PRN (02:00)
[2024-08-08] MEDS: SODIUM CHLORIDE 0.9% 500 ML IV ONE (03:40)
[2024-08-08] MEDS: HYDROcodone-ACET 5/325MG TAB PO PRN (03:51)
[2024-08-08 05:00] VITALS: BP 110/70; PULSE 94; RESP 16; TEMP 98.1; O2SAT 97
[2024-08-08 06:40] LABS: Basophils # (auto) 0.1 10 ^3/uL (0-0.2); Basophils % (auto) 0.6 % (0.0-2.0); Eosinophils # (auto) 0.1 10 ^3/uL (0-0.8); Eosinophils % (auto) 0.9 % (0.0-7.0); Hematocrit 34.2 % (36.0-46.0); Hemoglobin 11.6 g/dL (12.2-16.2); Lymphocytes % (auto) 26.5 % (10.0-50.0); Mean Corpuscular Hgb Conc. 34.1 g/dL (32.0-36.0); Mean Corpuscular Volume 93.9 fL (80.0-100.0); Monocytes # (auto) 0.4 10 ^3/uL (0-1.3); Monocytes % (auto) 3.8 % (0.0-12.0); Neutrophils # (auto) 7.7 10 ^3/uL (1.6-8.6); Neutrophils % (auto) 68.2 % (37.0-80.0); Nucleated Red Blood Cells % 0.1 %; Platelet Count (auto) 264 10^3/uL (140-450); Red Blood Cells 3.64 10^6/uL (4.0-5.20); White Blood Cell 11.3 10^3/uL (4.4-10.8)
[2024-08-08 06:48] LABS: Alanine Aminotransferase 11 U/L (7-40); Albumin 3.5 g/dL (3.2-4.8); Alkaline Phosphatase 56 U/L (46-116); Anion Gap 8 (5-15); BUN/Creatinine Ratio 11.7 (10.0-20.0); Blood Urea Nitrogen 9 mg/dL (9-23); Carbon Dioxide 21 mmol/L (20-31); Glucose 96 mg/dL (74-106); Potassium 3.6 mmol/L (3.5-5.1); Sodium 139 mmol/L (136-145)
[2024-08-08 06:52] LABS: Aspartate Aminotransferase 9 U/L (13-40); Bilirubin, Total 0.2 mg/dL (0.2-1.0); Calcium 8.4 mg/dL (8.7-10.4); Chloride 110 mmol/L (98-107); Total Protein 5.3 g/dL (5.7-8.2)
[2024-08-08 08:00] VITALS: PULSE 65; RESP 19; O2SAT 98
[2024-08-08 08:39] VITALS: BP 104/63; PULSE 65; RESP 19; TEMP 97.6; O2SAT 98
[2024-08-08] MEDS: KETOROLAC TROMETH 30 MG/ML 1ML VIAL IV PRN (10:39)
[2024-08-08 13:00] VITALS: BP 105/75; PULSE 72; RESP 18; TEMP 97.5; O2SAT 100
[2024-08-08] MEDS ORDERED: NAPR-957 PO (13:27)
[2024-08-08] MEDS ORDERED: ACET1CAP14 PO ×2 (13:27→14:07)
[2024-08-08] MEDS: ACETAMINOPHEN 325 MG TAB PO SCH (13:37)
[2024-08-08] MEDS ORDERED: DICL50TA2 PO (14:07)
[2024-08-08 15:05] VITALS: BP 105/75; PULSE 72; RESP 18; TEMP 97.5; O2SAT 100
[2024-08-08 16:10] LABS: Opiate Scree,Urine Neg (NEGATIVE)
[2024-08-08 16:17] LABS: Amphetamine Screen, Urine Neg (NEGATIVE); Barbiturate Scree,Urine Neg (NEGATIVE); Benzodiazephine Screen, Urine Neg (NEGATIVE); Cannabinoid Screen, Urine Neg (NEGATIVE); Cocaine Screen, Urine Neg (NEGATIVE); Phencyclidine Screen, Urine Neg (NEGATIVE)
--- NOTE | 2024-08-09 06:58 | DVHDSRES ---
Discharge Summary Date of Admission Resident Creating Document: ALLY COTA RESIDENT Aug 07, 2024 at 22:56 Date of Discharge: Aug 08, 2024 Admitting Diagnosis Intractable abdominal pain possibly due to endometriosis Labs/Diagnostic Data: Laboratory Results Test 08/08/24 05:52 08/08/24 00:00 08/07/24 19:04 08/07/24 17:41 White Blood Count 11.3 10^3/uL (4.4-10.8) Red Blood Count 3.64 10^6/uL (4.0-5.20) Hemoglobin 11.6 g/dL (12.2-16.2) Hematocrit 34.2 % (36.0-46.0) Mean Corpuscular Volume 93.9 fL (80.0-100.0) Mean Corpuscular Hemoglobin 32.0 pg (28.0-32.0) Mean Corpuscular Hemoglobin Concent 34.1 g/dL (32.0-36.0) Red Cell Distribution Width 13.0 % (11.8-14.3) Platelet Count 264 10^3/uL (140-450) Mean Platelet Volume 8.7 fL (6.9-10.8) Neutrophils (%) (Auto) 68.2 % (37.0-80.0) Lymphocytes (%) (Auto) 26.5 % (10.0-50.0) Monocytes (%) (Auto) 3.8 % (0.0-12.0) Eosinophils (%) (Auto) 0.9 % (0.0-7.0) Basophils (%) (Auto) 0.6 % (0.0-2.0) Neutrophils # (Auto) 7.7 10 ^3/uL (1.6-8.6) Lymphocytes # (Auto) 3.0 10 ^3/uL (0.4-5.4) Monocytes # (Auto) 0.4 10 ^3/uL (0-1.3) Eosinophils # (Auto) 0.1 10 ^3/uL (0-0.8) Basophils # (Auto) 0.1 10 ^3/uL (0-0.2) Nucleated Red Blood Cells 0.1 % Sodium Level 139 mmol/L (136-145) Potassium Level 3.6 mmol/L (3.5-5.1) Chloride Level 110 mmol/L (98-107) Carbon Dioxide Level 21 mmol/L (20-31) Anion Gap 8 (5-15) Blood Urea Nitrogen 9 mg/dL (9-23) Creatinine 0.77 mg/dL (0.550-1.02) Glomerular Filtration Rate Calc 110 mL/min (>90) BUN/Creatinine Ratio 11.7 (10.0-20.0) Serum Glucose 96 mg/dL (74-106) Calcium Level 8.4 mg/dL (8.7-10.4) Total Bilirubin 0.2 mg/dL (0.2-1.0) Aspartate Amino Transferase (AST) 9 U/L (13-40) Alanine Aminotransferase (ALT) 11 U/L (7-40) Alkaline Phosphatase 56 U/L (46-116) Total Protein 5.3 g/dL (5.7-8.2) Albumin 3.5 g/dL (3.2-4.8) Urine Opiates Screen Neg (NEGATIVE) Urine Fentanyl Screen Neg (NEGATIVE) Urine Barbiturates Screen Neg (NEGATIVE) Urine Phencyclidine Screen Neg (NEGATIVE) Urine Amphetamines Screen Neg (NEGATIVE) Urine Benzodiazepines Screen Neg (NEGATIVE) Urine Cocaine Screen Neg (NEGATIVE) Urine Cannabinoids Screen Neg (NEGATIVE) Urine Color Yellow (Yellow) Urine Clarity Turbid (Clear) Urine pH 6.5 (5.0-9.0) Urine Specific [place] 1.024 (1.001-1.035) Urine Protein Negative (Negative) Urine Ketones Negative (Negative) Urine Blood Negative /uL (Negative) Urine Nitrite Negative (Negative) Urine Bilirubin Negative (Negative) Urine Urobilinogen Normal mg/dL (Negative) Urine Leukocyte Esterase Negative /uL (Negative) Urine RBC 2 /hpf (0 - 4) Urine Microscopic WBC 2 /HPF (0-5) Urine Squamous Epithelial Cells Mod /hpf (<5) Urine Bacteria Few /hpf (None Seen) Urine Glucose Normal mg/dL (Normal) Urine Test Negative (Negative) Lactic Acid Level 1.8 mmol/L (0.4-2.0) Other Laboratory Tests 08/08/24 05:52 Brief Hx & Hospital Course: This is a 33-year-old female with a past medical history of endometriosis, migraine, and a herniated lower back disk, who was admitted due to intractable abdominal pain localized to the right lower quadrant, radiating to the left lower quadrant, and worsened with mobility. She also reported generalized body pain and urinary urgency without fever or signs of infection. Imaging, including abdominopelvic CT and ultrasounds, showed no acute abnormalities. The abdominal pain was suspected to be due to endometriosis, and conservative management was initiated, including IV fluids and pain control with [place]. The patient's condition improved during hospitalization, and she was deemed stable for discharge. She is being discharged home with a prescription for Diclofenac and Tylenol for pain control and advised to follow up with her primary care physician and medical assistant secretary for further management of her endometriosis. . She is instructed to return to the emergency department for any worsening abdominal pain, fever, or new concerning symptoms. FU in [facility] clinic for results of the urine culture and ultrasound of abdomen General Appearance: Alert, Oriented X3, Cooperative, No acute distress HEENT: Atraumatic, PERRLA, EOMI, Mucous membrane moist/pink Respiratory: Clear to auscultation, Normal air movement Cardiovascular: Regular rate, Normal S1, Normal S2, No murmurs, no chest wall tenderness Abdominal: Lower abdominal tenderness Extremities: No clubbing, No cyanosis, No edema, Normal pulses, No tenderness/swelling Skin: No rashes, No breakdown, No significant lesion Neuro: Normal gait, Normal speech, Strength at 5/5 X4 ext, Normal tone, Sensation intact, Cranial nerves 3-12 NL, Reflexes 2+ Psych/Mental Status: Mental status NL, Mood NL Case discussed with Dr Gilliland Time spent on care 23 min Operations or Procedures Procedure: CT CT AB PEL WO CON-NO ORAL OR IV 08/07/2024 07:31 PM Indication: RLQ PAIN Comparison Study: None available at time of dictation. Technique: Axial images were obtained and reformatted in coronal and sagittal planes. All CT scans at this medical facility are performed using dose modulation techniques as appropriate to a performed exam including the following: Automated exposure control was utilized; adjustment of the MA and/or KV according to patient size; and use of iterative reconstruction technique. CT Dose: CTDI volume is 11.52 mGy. Dose-length product is 666.9 mGy*cm FINDINGS: Lower Chest: Unremarkable. Hepatobiliary: Unremarkable. Spleen: Unremarkable. Pancreas: Unremarkable. Adrenal Glands: Unremarkable. tract: The kidneys are normal in size bilaterally without hydronephrosis or nephrolithiasis. The urinary bladder is unremarkable. GI tract: The stomach is grossly normal in appearance. No evidence of small bowel obstruction. The large bowel is unremarkable. Mild fecal retention. The appendix is not seen with certainty. No inflammatory changes noted in the right lower quadrant. Lymphatics: No mesenteric, retroperitoneal or periportal lymphadenopathy. Vasculature: The abdominal aorta is normal in in caliber. Pelvic Organs: Anteverted uterus containing an intrauterine device. Bones/soft tissues: No acute abnormality. Other: None. IMPRESSION: 1. No CT evidence of acute abnormality in the abdomen and pelvis. No hydronephrosis or urolithiasis. The appendix is not seen with certainty. No inflammatory changes noted in right lower quadrant. 2. Mild fecal retention. Procedure: US PELVIC Study Date and Requested Time: 08/07/2024 05:45 PM Study Description: US PELVIC History: RLQ pain Comparison: None Technique: Multiple transabdominal and transvaginal high resolution chisholm-scale images obtained of the uterus and adnexa with color Doppler for evaluation of adnexal blood flow and vascularity as indicated. Findings: Uterus measures 7.9 x 3.4 x 4 cm, with homogeneous echotexture. Endometrium within normal limits, measuring 0.8 cm in thickness with smooth contour. Cervix within normal limits. Intrauterine device is noted in place. Right ovary measures 1.9 x 3.1 x 2.1 cm with a 1.2 cm dominant follicle. Left ovary measures 2.6 x 1.7 x 2.4 cm. Normal ovarian color Doppler flow bilaterally. No evidence of free fluid in the cul-de-sac. Impression: Unremarkable sonographic study of the pelvis. Intrauterine device is noted in place. Condition at Discharge: Stable Final Diagnosis/Problems List Intractable abdominal pain possibly due to endometriosis History of endometriosis History of herniated low back disk Obesity, grade 1 SIRS without OD Discharge Disposition: Home Discharge Instruct/Medications Diet: Regular Activity: Light activity Follow Up/Referral: fu with pcp and [employer] Medications: see prescription Discharge Statement: "Patient was advised to return to the ER or call 911 if any headaches, dizziness, shortness of breath, chest pain, abdominal pain, bleeding, fevers, or worsening of medical condition. Patient was counseled about treatment plan, medications, possible side effects, patientverbalized understanding. All questions were answered to the best of my ability. This discharge took greater then 30 minutes in planning, reviewing documentation, counseling the patient, and discussing with other team members." ASSESSMENT ASSESSMENT Assessment acute intractable abdominal pain ALLY COTA RESIDENT Aug 09, 2024 06:58
== END 2024-08-08 15:35 | disposition home or self-care (01) | DRG 760 ==
LOC: ER 17:03 → OVERFLOW 22:56 → WEST WING 22:56
PROVIDERS: ADMIT Student in an Organized Health Care Education/Training Program; ATTEND Student in an Organized Health Care Education/Training Program
DX: N80.9 Endometriosis, unspecified (principal); R65.10 Systemic inflammatory response syndrome (SIRS) of non-infectious origin without acute organ dysfunction; E66.9 Obesity, unspecified; Z88.6 Allergy status to analgesic agent; Z88.1 Allergy status to other antibiotic agents; Z87.891 Personal history of nicotine dependence; Z68.32 Body mass index [BMI] 32.0-32.9, adult
CPT/HCPCS: 36415; 74176; 76830; 76856; 80053; 80307; 81001; 81025; 83605; 85025; 87040; 87086; G0378; J1885; J2543

== ENCOUNTER 2024-12-21 09:37 | Outpatient (CLI) | payer BC ==
[~2024-12-21 09:37] MED LIST changes: +ACET1CAP14 PO; +DICL50TA2 PO
[2024-12-21 09:51] LABS: Basophils # (auto) 0 10 ^3/uL (0-0.2); Basophils % (auto) 0.7 % (0.0-2.0); Eosinophils # (auto) 0.4 10 ^3/uL (0-0.8); Hematocrit 40.2 % (36.0-46.0); Lymphocytes # (auto) 2.3 10 ^3/uL (0.4-5.4); Lymphocytes % (auto) 32.6 % (10.0-50.0); Mean Corpuscular Hemoglobin 31.7 pg (28.0-32.0); Mean Corpuscular Hgb Conc. 34.9 g/dL (32.0-36.0); Mean Corpuscular Volume 90.9 fL (80.0-100.0); Monocytes # (auto) 0.3 10 ^3/uL (0-1.3); Monocytes % (auto) 4.9 % (0.0-12.0); Neutrophils # (auto) 3.9 10 ^3/uL (1.6-8.6); Neutrophils % (auto) 55.8 % (37.0-80.0); Nucleated Red Blood Cells % 0.1 %; Platelet Count (auto) 244 10^3/uL (140-450); Red Blood Cells 4.42 10^6/uL (4.0-5.20); Red Cell Distribution Width 12.8 % (11.8-14.3); White Blood Cell 6.9 10^3/uL (4.4-10.8)
== END 2024-12-21 17:00 | disposition home or self-care (01) ==
LOC: LAB 09:37
PROVIDERS: ATTEND Internal Medicine
DX: R10.9 Unspecified abdominal pain (principal); D64.9 Anemia, unspecified; M54.50 Low back pain, unspecified; Z79.899 Other long term (current) drug therapy
CPT/HCPCS: 36415; 82306; 83036; 84443; 85025

== ENCOUNTER 2025-04-15 10:33 | Outpatient (CLI) | payer BC ==
[2025-04-15 11:01] LABS: Hematocrit 44.3 % (36.0-46.0); Hemoglobin 14.9 g/dL (12.2-16.2); Mean Corpuscular Hemoglobin 31.6 pg (28.0-32.0); Mean Corpuscular Volume 93.9 fL (80.0-100.0); Nucleated Red Blood Cells % 0.1 %
[2025-04-15 11:24] LABS: Iron 243.0 ug/dL (50-170); Total Iron Binding Capacity 307.0 ug/dL (250-425)
== END 2025-04-15 17:00 | disposition home or self-care (01) ==
LOC: LAB 10:33
DX: N93.9 Abnormal uterine and vaginal bleeding, unspecified (principal)
CPT/HCPCS: 36415; 83540; 83550; 85025

== ENCOUNTER 2025-04-25 10:55 | Emergency (ER) | payer BC ==
[~2025-04-25] VITALS: Ht 160 cm; Wt 67.5 kg
[2025-04-25 10:56] VITALS: TEMP 98; O2SAT 99
--- NOTE | 2025-04-25 11:10 | ED.PDOC ---
HPI (NEURO) HPI Comments This is a 24 year old female presenting to the ED with chief complaint of headache. Patient reports that she has been experiencing a headache with associated insomnia for the past 5 days. Patient relays that she has been under a lot of stress lately and has been unable to sleep, even when taking Benadryl. Patient states she has history of migraines. Patient notes she was [place] [facility] and the migraine cocktail provided gave no relief. Patient denies any nausea, vomiting, dizziness, chest pain, or SOB. Chief Complaint: Headache Time Seen by MD: 11:07 Primary Care Provider: gamaliel Reviewed Notes: Nurses Notes, Medications, Allergies Information Source: Patient Mode of Arrival: Ambulatory Severity: Moderate Headache Severity: Moderate Timing: Days Duration: Since onset Prehospital treatment: None Headache Quality: Aching Headache Location: Generalized Onset: At rest Circumstances: Recent stress History of: Known Headache Disorder Modifying factors: Nothing Associated Signs and Symptoms: Headache Past Medical History PAST MEDICAL HISTORY: UTI'S Past Medical History (Other): Migraines Surgical History: Tonsillectomy CLINICAL SCIENCES PROFESSOR History: No Pertinent CLINICAL SCIENCES PROFESSOR History, Endometriosis Family History Family History: Reviewed,noncontributory to illness Social History Smoker: Non-Smoker, Other Alcohol: Denies ETOH Use Drugs: Marijuana Lives In: Home Constitutional: denies: chills, diaphoresis, fatigue, fever, malaise, sweats, weakness, others EENTM: denies: blurred vision, double vision, ear bleeding, ear discharge, ear drainage, ear pain, ear ringing, eye pain, eye redness, hearing loss, mouth pain, mouth swelling, nasal discharge, nose bleeding, nose congestion, nose pain, photophobia, tearing, throat pain, throat swelling, voice changes, others Respiratory: denies: cough, hemoptysis, orthopnea, SOB at rest, shortness of breath, SOB with excertion, stridor, wheezing, others Cardiovascular: denies: chest pain, dizzy spells, diaphoresis, Dyspnea on exertion, edema, irregular heart beat, left arm pain, lightheadedness, palpitations, PND, syncope, others Gastrointestinal: denies: abdomen distended, abdominal pain, blood streaked bowels, constipated, diarrhea, dysphagia, difficulty swallowing, hematemesis, melena, nausea, poor appetite, poor fluid intake, rectal bleeding, rectal pain, vomiting, others Genitourinary: denies: abnormal vagina bleeding, burning, dyspareunia, dysuria, flank pain, frequency, hematuria, incontinence, pain, , vagina discharge, urgency, others Neurological: reports: headache; denies: dizziness, fainting, left sided numbness, left sided weakness, numbness, paresthesia, pre-existing deficit, right sided numbness, right sided weakness, seizure, speech problems, tingling, tremors, weakness, others Musculoskeletal: denies: back pain, gout, joint pain, joint swelling, muscle pain, muscle stiffness, neck pain, others Integumetry: denies: bruises, change in color, change in hair/nails, dryness, laceration, lesions, lumps, rash, wounds, others Allergic/Immunocompromised: denies: Difficulty Healing, Frequent Infections, Hives, Itching, others Hematologic/Lymphatic: denies: anemia, blood clots, easy bleeding, easy bruising, swollen glands, others Endocrine: denies: excessive hunger, excessive sweating, excessive thirst, excessive urination, flushing, intolerance to cold, intolerance to heat, unexplained weight gain, unexplained weight loss, others Psychiatric: reports: sleepless; denies: anxiety, bipolar disorder, depression, hopeless, panic disorder, schizophrenia, suicidal, others All Other Systems: Reviewed and Negative Physical Exam General Appearance: Moderate Distress, Normal HEENT: Normal ENT Inspection, Pharynx Normal, TMs Normal Neck: Full Range of Motion, Non-Tender, Normal, Normal Inspection Respiratory: Chest Non-Tender, Lungs Clear, No Accessory Muscle Use, No Respiratory Distress, Normal Breath Sounds Cardiovascular: No Edema, No JVD, No Murmur, No Gallop, Normal Peripheral Pulses, Regular Rate/Rhythm Breast Exam: Deferred Gastrointestinal: No Organomegaly, Non Tender, No Pulsatile Mass, Normal Bowel Sounds, Soft Genitalia: Deferred Pelvic: Deferred Rectal: Deferred Extremities: No calf tenderness, Normal capillary refill, Normal inspection, Normal range of motion, Non-tender, No pedal edema Musculoskeletal : Apperance: Normal Neurologic: Alert, industrial yard brake coupler II-XII nml as Tested, No Motor Deficits, Normal Affect, Normal Mood, No Sensory Deficits Cerebellar Function: Normal Reflexes: Normal Skin: Dry, Normal Color, Warm Peripheral Pulses: 3+ Radial (R), 3+ Radial (L) Lymphatic: No Adenopathy Was a procedure done? Was a procedure done?: No Differential Diagnosis (SZ) Seizure: Psychogenic Seizure, Closed Head Injury, CVA/TIA X-Ray, Labs, Meds, VS Vital Signs Date Time Temp Pulse Resp B/P (MAP) Pulse Ox O2 Delivery O2 Flow Rate FiO2 04/25/25 12:52 87 16 115/79 (91) 04/25/25 12:51 101 16 115/79 04/25/25 10:56 98.0 108 16 128/96 99 98.0 Lab Test 04/25/25 11:19 Range/Units White Blood Count 6.9 4.4-10.8 10^3/uL Red Blood Count 4.79 4.0-5.20 10^6/uL Hemoglobin 15.5 12.2-16.2 g/dL Hematocrit 44.2 36.0-46.0 % Mean Corpuscular Volume 92.2 80.0-100.0 fL Mean Corpuscular Hemoglobin 32.4 H 28.0-32.0 pg Mean Corpuscular Hemoglobin Concent 35.1 32.0-36.0 g/dL Red Cell Distribution Width 12.5 11.8-14.3 % Platelet Count 314 140-450 10^3/uL Mean Platelet Volume 8.7 6.9-10.8 fL Neutrophils (%) (Auto) 67.6 37.0-80.0 % Lymphocytes (%) (Auto) 25.3 10.0-50.0 % Monocytes (%) (Auto) 3.5 0.0-12.0 % Eosinophils (%) (Auto) 2.8 0.0-7.0 % Basophils (%) (Auto) 0.8 0.0-2.0 % Neutrophils # (Auto) 4.7 1.6-8.6 10 ^3/uL Lymphocytes # (Auto) 1.8 0.4-5.4 10 ^3/uL Monocytes # (Auto) 0.2 0-1.3 10 ^3/uL Eosinophils # (Auto) 0.2 0-0.8 10 ^3/uL Basophils # (Auto) 0.1 0-0.2 10 ^3/uL Nucleated Red Blood Cells 0.1 % Sodium Level 140 136-145 mmol/L Potassium Level 4.1 3.5-5.1 mmol/L Chloride Level 108 H 98-107 mmol/L Carbon Dioxide Level 22 20-31 mmol/L Anion Gap 10 5-15 Blood Urea Nitrogen 7 L 9-23 mg/dL Creatinine 0.85 0.550-1.02 mg/dL Glomerular Filtration Rate Calc 97 >90 mL/min BUN/Creatinine Ratio 8.2 L 10.0-20.0 Serum Glucose 83 74-106 mg/dL Calcium Level 9.9 8.7-10.4 mg/dL Current Medications Medications (Trade) Dose Ordered Sig/Renea Route Start Time Stop Time Status Last Admin Sodium Chloride 1,000 ml @ 1,000 mls/hr Q1H ONCE IV 04/25/25 11:15 04/25/25 12:14 DC 04/25/25 12:44 Hydromorphone HCl (Dilaudid Injection) 1 mg ONCE ONCE IV 04/25/25 11:15 04/25/25 11:16 DC 04/25/25 12:51 Ondansetron HCl (Zofran) 4 mg ONCE ONCE IV 04/25/25 11:15 04/25/25 11:16 DC 04/25/25 12:49 Ketorolac Tromethamine (Toradol Injection) 30 mg ONCE ONCE IV 04/25/25 13:15 04/25/25 13:18 DC 04/25/25 14:04 Acetaminophen (Ofirmev) 1,000 mg ONCE ONCE IV 04/25/25 13:15 04/25/25 13:18 DC 04/25/25 14:05 CT Head: [place] [id number] Ph: [phone] DIAGNOSTIC IMAGING Diagnostic Imaging Report : [id number] Signed PATIENT: VERITO BRIONES ACCT: [id number] UNIT: [id number] : 2000 LOC: ER ROOM / BED: / AGE / SEX: 24 / F ADM STATUS: REG ER SERVICE 1240 ORDERING PHYSICIAN: JASON BAILEY MD PROCEDURE(s): HWOCT - HEAD WITHOUT CONTRAST REASON: headache ORDER NUMBER(s): [id number], ACCESSION NUMBER(s): [id number] EXAM: CT HEAD WITHOUT CONTRAST INDICATION: headache TECHNIQUE: CT of the head without intravenous contrast. Radiation Dose Information: CT Dose: CTDI volume is 57.29 mGy. Dose-length p roduct is 928.55 mGy*cm The dose indicators for CT are the volume Computed Tomography (CT) Dose Index (CTDIvol) and the Dose Length Product (DLP), and are measured in units of mGy and mGy-cm, respectively. These indicators are not patient dose, but values generated from the CT scanner acquisition factors. The report includes radiation exposure data for exposures received during this examination. COMPARISON: None FINDINGS: There is no evidence of acute intracranial hemorrhage, extra-axial collection, mass effect, midline shift, herniation or hydrocephalus. The ventricles, sulci and cisterns are age appropriate. The chisholm-white differentiation is intact. Patchy periventricular and subcortical white matter hypoattenuation is nonspecific but may be related to small vessel ischemic disease. The visualized paranasal sinuses and mastoid air cells are clear. The surrounding soft tissues and osseous structures are unremarkable. IMPRESSION: No acute intracranial abnormality. ATED BY: MARTHA POTTS MD DICTATED DATE/TIME: 04/25/25 1321 SIGNED BY: MARTHA POTTS MD SIGNED DATE/TIME: 04/25/25 1321 CC: Patient alert. Came in because of headache. CT of the head reviewed does not show any acute process. Vitals stable. Answering all questions. Was given Toradol. Was given Tylenol. Was given prescription of Ambien. Explained to the patient. Was told to follow up with her primary care physician. Was told to come back if there is any problem. Images Reviewed?: Images reviewed and evaluated by me Time of 1ST Reevaluation: 12:07 Reevaluation 1ST: Unchanged Patient Education/Counseling: Diagnosis, Treatment Family Education/Counseling: No Family Present Departure 1 Departure Time of Disposition: 15:00 Impression: Primary Impression: Migraine headache without aura Qualified Codes: G43.009 - Migraine without aura, not intractable, without status migrainosus Disposition: 01 HOME / SELF CARE / HOMELESS Condition: Good e-Prescriptions Zolpidem Tartrate (Ambien) 5 Mg Tab 5 MG PO DAILY for 5 Days, #5 TAB Prov: JASON BAILEY MD 04/25/25 Discharged With: Self Critical Care Note Critical Care Time?: No Stability Stability form required: No Heart Score Heart Score: Heart Score Response (Comments) Value History N/A 0 EKG N/A 0 Age N/A 0 Risk Factors N/A 0 Troponin N/A 0 Total 0 I personally scribed for JASON BAILEY MD ([email or web address]) on 04/25/25 at 11:10. Electronically submitted by Gautam Owen ([email or web address]). I personally scribed for JASON BAILEY MD ([email or web address]) on 04/25/25 at 14:06. Electronically submitted by Gautam Owen ([email or web address]). JASON BAILEY MD Apr 25, 2025 11:10
[2025-04-25 11:52] LABS: Hematocrit 44.2 % (36.0-46.0); Hemoglobin 15.5 g/dL (12.2-16.2); Mean Corpuscular Hemoglobin 32.4 pg (28.0-32.0); Mean Corpuscular Volume 92.2 fL (80.0-100.0); Nucleated Red Blood Cells % 0.1 %
[2025-04-25 11:59] LABS: Potassium 4.1 mmol/L (3.5-5.1); Sodium 140 mmol/L (136-145)
[2025-04-25 12:00] LABS: Chloride 108 mmol/L (98-107)
[2025-04-25 12:01] LABS: Anion Gap 10 (5-15); Calcium 9.9 mg/dL (8.7-10.4); Carbon Dioxide 22 mmol/L (20-31)
[2025-04-25 12:06] LABS: BUN/Creatinine Ratio 8.2 (10.0-20.0); Blood Urea Nitrogen 7 mg/dL (9-23); Glucose 83 mg/dL (74-106)
[2025-04-25] MEDS: SODIUM CHLORIDE 0.9% 1,000 ML IV ONE (12:44)
[2025-04-25] MEDS: ONDANSETRON HCL 4 MG/2 ML VIAL IV ONE (12:49)
[2025-04-25] MEDS: HYDROmorphone HCL 2 MG/ML VL/or syr IV ONE (12:51)
[2025-04-25 12:52] VITALS: BP 115/79; PULSE 87; RESP 16
--- NOTE | 2025-04-25 13:24 | DVH ---
EXAM: CT HEAD WITHOUT CONTRAST INDICATION: headache TECHNIQUE: CT of the head without intravenous contrast. Radiation Dose Information: CT Dose: CTDI volume is 57.29 mGy. Dose-length product is 928.55 mGy*cm The dose indicators for CT are the volume Computed Tomography (CT) Dose Index (CTDIvol) and the Dose Length Product (DLP), and are measured in units of mGy and mGy-cm, respectively. These indicators are not patient dose, but values generated from the CT scanner acquisition factors. The report includes radiation exposure data for exposures received during this examination. COMPARISON: None FINDINGS: There is no evidence of acute intracranial hemorrhage, extra-axial collection, mass effect, midline s hift, herniation or hydrocephalus. The ventricles, sulci and cisterns are age appropriate. The chisholm-white differentiation is intact. Patchy periventricular and subcortical white matter hypoattenuation is nonspecific but may be related to small vessel ischemic disease. The visualized paranasal sinuses and mastoid air cells are clear. The surrounding soft tissues and osseous structures are unremarkable. IMPRESSION: No acute intracranial abnormality.
[2025-04-25] MEDS: KETOROLAC TROMETH 30 MG/ML 1ML VIAL IV ONE (14:04)
[2025-04-25] MEDS: ACETAMINOPHEN IV 1000 MG/100ML (10MG/ML) IV ONE (14:05)
[2025-04-25] MEDS ORDERED: ZOLP5TAB PO (15:03)
[2025-04-25] MEDS: ZOLPIDEM TARTRATE 5 MG TAB PO ONE (15:15)
== END 2025-04-25 15:21 | disposition home or self-care (01) ==
LOC: ER 10:55
DX: G43.009 Migraine without aura, not intractable, without status migrainosus (principal); F12.90 Cannabis use, unspecified, uncomplicated; Z90.89 Acquired absence of other organs; Z87.440 Personal history of urinary (tract) infections
CPT/HCPCS: 36415; 70450; 80048; 85025; 96361; 96374; 96375; 99285; J1171; J1885; J2405; J7030; J0131